=== PATIENT | male | born 1945 | race Caucasian/White ===

== ENCOUNTER 2019-11-20 07:11 | Outpatient (RCR) | payer MEDICARE, OTHER, SELFPAY | END 2019-12-13 23:59 | disposition home or self-care (01) | LOC: PULRHB 07:11 | PROVIDERS: Family Provider Internal Medicine; Visit Provider Internal Medicine Critical Care Medicine | DX: J44.9 Chronic obstructive pulmonary disease, unspecified (principal) ==

== ENCOUNTER 2019-12-10 09:41 | Outpatient (CLI) | payer MEDICARE, OTHER, SELFPAY | END 2019-12-10 09:42 | disposition home or self-care (01) | LOC: RT 09:41 | PROVIDERS: Family Provider Internal Medicine; Visit Provider Internal Medicine Critical Care Medicine | DX: J44.9 Chronic obstructive pulmonary disease, unspecified (principal) | CPT/HCPCS: 94060; 94726; 94729; J7611 ==

== ENCOUNTER 2019-12-18 13:30 | Outpatient (RCR) | payer MEDICARE, OTHER, SELFPAY | END 2020-01-11 23:59 | disposition home or self-care (01) | LOC: PULRHB 13:30 | PROVIDERS: Family Provider Internal Medicine; PCP Internal Medicine Critical Care Medicine; Visit Provider Internal Medicine Critical Care Medicine | DX: Z01.89 Encounter for other specified special examinations (principal) ==

== ENCOUNTER 2019-12-27 07:52 | Outpatient (RCR) | payer MEDICARE, OTHER, SELFPAY ==
--- NOTE | 2019-12-27 08:00 | USCV_ITS ---
Lui Kev Age: 74 Gender: M : 1945 Exam Date: 12/27/2019 08:11 Ordering Phys: Josie Jacobson MD Technologist: Boy Blake Exam Location: [facility] [place] Indication: BP: 126 / 73 HR: 66 Rhythm: Sinus Technical Quality: Suboptimal MEASUREMENTS (Male / Female) Normal Values 2D ECHO LV Diastolic Diameter PLAX 5.3 cm 4.2 - 5.9 / 3.9 - 5.3 cm LV Systolic Diameter PLAX 3.4 cm IVS Diastolic Thickness 1.0 cm 0.6 - 1.0 / 0.6 - 0.9 cm IVS Systolic Thickness 1.7 cm LVPW Diastolic Thickness 1.2 cm 0.6 - 1.0 / 0.6 - 0.9 cm LVPW Systolic Thickness 1.6 cm LVOT Diameter 2.1 cm LV Ejection Fraction 2D Teich 64.6 % LV Ejection Fraction MOD 2C 54.7 % LV Ejection Fraction 2C AL 53.8 % LA Diameter 4.2 cm LA Width 4.5 cm LA Height 5.7 cm RA Width 4.3 cm RA Height 5.0 cm Aorta at Sinotubular Diameter 2.9 cm M-MODE LV Diastolic Diameter MM 5.3 cm 4.2 - 5.9 / 3.9 - 5.3 cm LV Systolic Diameter MM 3.7 cm LV Ejection Fraction MM Teich 57.1 % IVS Diastolic Thickness MM 1.1 cm 0.6 - 1.0 / 0.6 - 0.9 cm IVS Systolic Thickness MM 1.5 cm LVPW Diastolic Thickness MM 1.4 cm 0.6 - 1.0 / 0.6 - 0.9 cm LVPW Systolic Thickness MM 1.8 cm RV Diastolic Diameter MM 2.1 cm Aortic Annulus Diameter 4.4 cm LA Ao Ratio MM 0.9 MV E Point Septal Separation 1.7 cm DOPPLER AV Peak Velocity 186.0 cm/s LVOT Peak Velocity 91.0 cm/s AV Area Cont Eq vti 1.5 cm squared AV Area Cont Eq pk 1.6 cm squared MV Area PHT 5.0 cm squared Mitral E to A Ratio 1.3 MV E' Velocity 8.0 cm/s Mitral E to MV E' Ratio 21.2 Mitral E to LV E' Lateral Ratio 17.1 Mitral E to LV E' Septal Ratio 27.8 TR Peak Velocity 230.0 cm/s TR Peak Gradient 21.1 mmHg TV Peak E Velocity 128.0 cm/s Right Atrial Pressure 3.0 mmHg Pulmonary Artery Systolic Pressu 24.2 mmHg PV Peak Velocity 126.0 cm/s FINDINGS Left Ventricle Normal left ventricular size, systolic function and wall thickness, with no regional wall motion abnormalities. Grade II/IV diastolic dysfunction, moderately elevated filling pressures. Left ventricular ejection fraction is estimated at 55 %. Right Ventricle Normal right ventricular size and systolic function. Normal right ventricular systolic pressure. Right Atrium Mildly increased right atrial size. Left Atrium Mildly increased left atrial size. Mitral Valve Mitral valve not well visualized. No mitral valve regurgitation. Aortic Valve Structurally normal trileaflet aortic valve. Mild aortic valve calcification. Mild aortic valve stenosis, mean gradient 5.3 mmHg, CHAGO 1.5 cm squared. No aortic valve regurgitation. Tricuspid Valve Tricuspid valve not well visualized. Structurally normal tricuspid valve. Trace tricuspid valve regurgitation. Pulmonic Valve Pulmonic valve not well visualized. Mild pulmonary valve regurgitation. Pericardium Normal pericardium without effusion. Aorta Normal ascending aorta dimension. CONCLUSIONS Normal left ventricular size, systolic function and wall thickness, with no regional wall motion abnormalities. Grade II/IV diastolic dysfunction, moderately elevated filling pressures. Left ventricular ejection fraction is estimated at 55 %. Mildly increased right atrial size. Mildly increased left atrial size. Structurally normal trileaflet aortic valve. Mild aortic valve calcification. Mild aortic valve stenosis, mean gradient 5.3 mmHg, CHAGO 1.5 cm squared. No aortic valve regurgitation. There are no prior echocardiogram studies to compare. Dr. Clinton Washington MD (Electronically Signed) Final Date: 27 December 2019 14:50 S
== END 2020-01-11 23:59 | disposition home or self-care (01) ==
LOC: RAD 07:52
PROVIDERS: Family Provider Internal Medicine; PCP Internal Medicine Critical Care Medicine; Visit Provider Internal Medicine Critical Care Medicine
DX: I35.0 Nonrheumatic aortic (valve) stenosis (principal); I51.7 Cardiomegaly; I51.89 Other ill-defined heart diseases; R06.02 Shortness of breath
CPT/HCPCS: 93306

== ENCOUNTER 2020-01-06 09:23 | Outpatient (CLI) | payer MEDICARE, OTHER, SELFPAY ==
--- NOTE | 2020-01-06 09:49 | XR_ITS ---
WS: [id number] CHEST 2 VIEWS HISTORY: shortness of breath and hypoxia COMPARISON: 05/29/2018 Lungs: Hyperexpanded lungs. Linear stranding and bands in the lower lung person, LEFT greater than RI GHT. Slight elevation of the LEFT hemidiaphragm. Similar to the prior study. There are small bilatera l pleural effusions. Rounded atelectasis also noted on a prior CT involving the LEFT lung base. No pn eumonia or interval change. Cardiac size: Normal. Mediastinum/Aorta: Mild atherosclerosis aorta. Prior CABG. Bones: Thoracic spondylosis. XR/XR chest 2V* [id number] IMPRESSION: 1. Small bilateral pleural effusions versus pleural thickening. 2. More prominent consolidation at the LEFT base was noted to be related due t o a loculated pleural effusion and atelectasis as seen on 11/04/2019 with no in terval change. 3. Emphysema. 4. Prior CABG.
== END 2020-01-06 09:24 | disposition home or self-care (01) ==
PROVIDERS: Family Provider Internal Medicine; PCP Internal Medicine Critical Care Medicine; Visit Provider Internal Medicine Critical Care Medicine
DX: J43.9 Emphysema, unspecified (principal); R06.00 Dyspnea, unspecified; J90 Pleural effusion, not elsewhere classified; J98.11 Atelectasis; Z95.1 Presence of aortocoronary bypass graft
CPT/HCPCS: 71046

== ENCOUNTER 2020-01-20 08:31 | Outpatient (CLI) | payer MEDICARE, OTHER, SELFPAY ==
--- NOTE | 2020-01-20 08:30 | CT_ITS ---
WS: [id number] CTA THORACIC TECHNIQUE: Contrast enhanced CTA of the thoracic aorta with coronal and sagittal reformatted images a nd maximum intensity projection (MIP) images. CLINICAL INFORMATION: Increased SOB COMPARISON: CT chest November 04, 2019 DLP: 752.[address] scans at [facility] use at least one of these dose optimization techniques: automat ed exposure control; mA and/or kV adjustment per patient size (includes targeted exams where dose is matched to clinical indication); or iterative reconstruction. FINDINGS: Proximal main pulmonary arteries are patent. Segmental and subsegmental pulmonary arteries are patent . No evidence for pulmonary embolus. Chronic emphysematous changes. Small loculated pleural effusion left lower lobe unchanged from previo us. Compressive atelectasis left lower lobe. Hazy atelectasis and scattered groundglass opacities in both lungs more prominent in the upper lobes. This is new from previous and may be infectious or infl ammatory. No focal pneumonia. Subsegmental atelectasis right lower lobe. Trace right pleural fluid. Right thyroid nodule measuring 12 mm. Vascular calcification. Coronary calcification. No mediastinal or hilar lymphadenopathy. Sternotomy. Adrenal glands are normal. Cholelithiasis. Anterior hypertrophi c changes thoracic spine. CT/CT angio chest [id number] IMPRESSION: 1. No evidence for pulmonary embolus. 2. Cholelithiasis. 3. Small esophageal hiatal hernia. 4. Loculated small left pleural effusion with compressive atelectasis left crystal g base unchanged. Trace right pleural fluid. 5. Hazy groundglass infiltrates and atelectasis within the right greater than left upper lobes new from previous. This may be infectious or inflammatory. No focal pneumonia. 6. Vascular calcification including coronary.
[2020-01-20 09:13] LABS: Blood Urea Nitrogen 12 mg/dL (8-23)
[2020-01-20] MEDS: iohexol 350 mg/mL 100 mL Btl IV (09:48)
== END 2020-01-20 08:32 | disposition home or self-care (01) ==
LOC: RADWPI 08:36
PROVIDERS: Radiology Neuroradiology; Family Provider Internal Medicine; PCP Internal Medicine Critical Care Medicine; Visit Provider Internal Medicine Critical Care Medicine
DX: J44.9 Chronic obstructive pulmonary disease, unspecified (principal); J90 Pleural effusion, not elsewhere classified; I28.8 Other diseases of pulmonary vessels; K80.20 Calculus of gallbladder without cholecystitis without obstruction; K44.9 Diaphragmatic hernia without obstruction or gangrene; J98.11 Atelectasis; I25.10 Atherosclerotic heart disease of native coronary artery without angina pectoris; R06.02 Shortness of breath
CPT/HCPCS: 71275; 82565; 84520; Q9967

== ENCOUNTER 2020-03-17 09:11 | Outpatient (CLI) | payer MEDICARE, OTHER, SELFPAY ==
[2020-03-17 09:44] LABS: Alanine Aminotransferase 17 U/L (0-41); Albumin Level 3.9 g/dL (3.5-5.2); Alkaline Phosphatase 138 IU/L (40-130); Anion Gap 12.5 (5-19); Aspartate Amino Transferase 16 U/L (0-40); Blood Urea Nitrogen 17 mg/dL (8-23); Calcium 9.7 mg/dL (8.5-10.5); Carbon Dioxide 32 mmol/L (22-29); Chloride 102 mmol/L (98-107); Globulin 2.9 g/dL (1.3-4.6); Glucose 106 mg/dL (65-115); Osmolality Calculated 291 mOsm/kg (285-295); Potassium 4.5 mmol/L (3.5-5.1); Sodium 142 mmol/L (136-145); Total Bilirubin 0.5 mg/dL (0.15-1.2); Total Protein 6.8 g/dL (6.6-8.7)
== END 2020-03-17 09:12 | disposition home or self-care (01) ==
LOC: LAB 09:14
PROVIDERS: Family Provider Internal Medicine; PCP Internal Medicine Critical Care Medicine; Visit Provider Internal Medicine Critical Care Medicine
DX: J44.9 Chronic obstructive pulmonary disease, unspecified (principal)
CPT/HCPCS: 80053

== ENCOUNTER 2020-04-13 06:00 | Outpatient (RCR) | payer MEDICARE, OTHER, SELFPAY | END 2020-05-12 23:59 | disposition home or self-care (01) | LOC: PULRHB 06:00 | PROVIDERS: PCP Internal Medicine Critical Care Medicine; Visit Provider Internal Medicine Critical Care Medicine | DX: J44.9 Chronic obstructive pulmonary disease, unspecified (principal) | CPT/HCPCS: G0237; G0238; G0239 ==

== ENCOUNTER 2020-05-13 06:00 | Outpatient (RCR) | payer MEDICARE, OTHER, SELFPAY | END 2020-06-12 23:59 | disposition home or self-care (01) | LOC: PULRHB 06:00 | PROVIDERS: PCP Internal Medicine Critical Care Medicine; Visit Provider Internal Medicine Critical Care Medicine | DX: J84.10 Pulmonary fibrosis, unspecified (principal) | CPT/HCPCS: 94010; G0237; G0238 ==

== ENCOUNTER 2020-12-05 09:50 | Emergency (ER) | payer MEDICARE, OTHER, SELFPAY ==
[2020-12-05 09:52] VITALS: BP 165/94; PULSE 62; RESP 18; TEMP 36.7; O2SAT 100; BMI 27.1
--- NOTE | 2020-12-05 09:57 | ED_ITS ---
HPI - Male Genitourinary General: Chief complaint: Urogenital-Male Stated complaint: BLOODY URINE Time Seen by Provider: 12/05/20 09:52 History of Present Illness: HPI Narrative: 75-year-old male presents emergency room complaining of hematuria. Symptoms began last night. He has been able to urinate they have after he urinates he says he will get some continued bloody discharge. Some mild discomfort with urination. She does not feel like he is having difficulty emptying his bladder. He denies any history of prostate cancer bladder cancer. He is on Plavix. He has had a history of nephrolithiasis in the past denies any flank pain is not in any apparent pain at this time. He has severe COPD and is on his usual amount of oxygen. MD Complaint: other (Gross hematuria) Onset (ago): hour(s) Duration: constant Exacerbating factors: none Associated symptoms: Reports hematuria; Deny discharge, dysuria, fevers/chills, nausea, rash, swelling, urinary incontinence, urinary retention, mass or vomiting Review of Systems Const: Denies: fever(s), chills, body aches, change in appetite, fatigue or malaise ENMT: Denies: throat pain, ear or mastoid pain, nasal discharge or nasal congestion Card: Denies: chest pain, edema, dyspnea on exertion or orthopnea Resp: Denies: dyspnea, productive cough or non-productive cough GI: Denies: vomiting : Reports: hematuria; Denies: dysuria or urinary incontinence Skin/Breast: Denies: rash or pruritus [facility] PFSH: Medical History CAD (coronary artery disease) COPD (chronic obstructive pulmonary disease) Essential (primary) hypertension Hyperlipidemia Pleural thickening Ventricular bigeminy Surgical History H/O heart surgery History of back surgery Family History Mother Diabetes Social History Smoking and tobacco status: former smoker Quit status (tobacco): has quit using tobacco Year quit tobacco: 1981 - 2PPD x 20 Years Smoking risk assessment/counseling performed?: No Alcohol intake: never Desire information about alcohol rehabilitation?: No Counseling given: No Desire information about substance/drug rehabilitation?: No Counseling given: No Lives independently: Yes Household members: spouse Marital status: Current occupational status: retired History of recent travel: No Current gender identity: Male Physical Exam Const: COMMON NORMALS: no acute distress GENERAL APPEARANCE: cooperative and comfortable ORIENTATION/CONSCIOUSNESS: Yes awake, Yes oriented to person, Yes oriented to place and Yes oriented to time HENMT: COMMON NORMALS: normocephalic, atraumatic and hearing grossly normal bilaterally HEAD & SCALP: normocephalic and atraumatic Neck/C-Spine: COMMON NORMALS: no JVD Resp: COMMON NORMALS: normal respiratory effort, No retractions and No use of accessory muscles AUSCULTATION: diminished lung sounds Cardio: COMMON NORMALS: no JVD, regular rate, regular rhythm and No murmurs present (Cardio) RATE: regular rate RHYTHM: regular rhythm GI: COMMON NORMALS: Soft to palpation and No hepatosplenomegaly present AUSCULTATION: Yes normoactive bowel sounds PALPATION: Yes Soft to palpation, No Tenderness to palpation present (GI), No Guarding due to palpation present (GI) and Yes No hepatosplenomegaly present Extremity: COMMON NORMALS: normal to inspection, capillary refill normal, no clubbing, cyanosis or edema, no calf tenderness and no pedal edema Neuro: SENSORIUM/ORIENTATION: Yes oriented to person, Yes oriented to place and Yes oriented to time Skin: COMMON NORMALS: no rashes or lesions noted GENERAL SKIN EXAM: no rashes or lesions noted Course Vital Signs: Vital signs: Vital Signs Temperature 98.1 F 12/05/20 09:52 Pulse Rate 73 12/05/20 12:52 Respiratory Rate 15 12/05/20 12:52 Blood Pressure 152/72 12/05/20 12:52 Pulse Oximetry 100 12/05/20 12:52 MDM - Male MDM Narrative: Medical decision making narrative: Gross hematuria on the CT there is evidence of a stone in the bladder I suspect he already passed a stone is having increased hematuria because of his Plavix patient vies to watch closely to make sure he empties his bladder feels like he cannot empty his bladder needs to return drink regular amounts of fluid to encourage urination collect stone follow-up with Keiry if has any problems return Lab Data: Labs: Lab Results 12/05/20 12/05/20 12/05/20 Range/Units 10:05 10:05 10:05 WBC 9.0 (4.0-10.0) 10^3/ uL RBC 4.40 (4.1-5.3) 10^6/u L Hgb 12.8 (11.7-16.6) g/dL Hct 42.0 (42.0-52.0) % MCV 95.5 H (80-94) fL MCH 29.1 (28.0-34.0) pg MCHC 30.5 (30.0-36.0) g/dL RDW 13.3 (12.1-15.1) % Plt Count 233 (130-400) 10^3/c mm MPV 11.1 H (7.4-10.4) fL Neut % (Auto) 74.9 % Lymph % (Auto) 16.4 % Thurston % (Auto) 7.1 % Eos % (Auto) 1.0 % Baso % (Auto) 0.2 % Neut # (Auto) 6.76 (1.8-7.7) 10^3/u L Lymph # (Auto) 1.5 (0.8-4.8) 10^3/u L Thurston # (Auto) 0.6 (0.2-0.9) 10^3/u L Eos # (Auto) 0.1 (0.0-0.8) 10^3/u L Baso # (Auto) 0.0 (0.0-0.1) 10^3/u L Nucleated RBC % (a uto) 0 % Nucleated RBCs # 0.0 /100WBC PT 13.00 (12.1-14.9) SECO NDS INR 0.96 (0.8-1.2) APTT 30.9 (23.9-36.7) SECO NDS Sodium 142 (136-145) mmol/L Potassium 3.9 (3.5-5.1) mmol/L Chloride 102 (98-107) mmol/L Carbon Dioxide 34 H (22-29) mmol/L Anion Gap 9.9 (5-19) BUN 18 (8-23) mg/dL Creatinine 0.8 (0.7-1.2) mg/dL GFR Calculation Not Reportable Glucose 91 (65-115) mg/dL Calculated Osmolal ity 295 (285-295) mOsm/k g Calcium 10.3 (8.5-10.5) mg/dL Total Bilirubin 0.8 (0.15-1.2) mg/dL AST 17 (0-40) U/L ALT 14 (0-41) U/L Alkaline Phosphata se 162 H (40-130) IU/L Total Protein 6.7 (6.6-8.7) g/dL Albumin 3.8 (3.5-5.2) g/dL Globulin 2.9 (1.3-4.6) g/dL Urine Color (Yellow) Urine Appearance (CLEAR) Urine pH (5-7) Ur Specific Gravit y (1.005-1.030) Urine Protein (Negative) Urine Glucose (UA) (Normal) Urine Ketones (Negative) Urine Blood (Negative) Urine Nitrate (Negative) Urine Bilirubin (Negative) Urine Urobilinogen (Negative) mg/dL Ur Leukocyte Jana ase (Negative) Urine RBC (0-2) /hpf Urine WBC (0-5) /hpf Ur Squamous Epith Cells (0-5) /hpf Amorphous Sediment Urine Bacteria (NONE) /hpf 12/05/20 Range/Units 10:24 WBC (4.0-10.0) 10^3/ uL RBC (4.1-5.3) 10^6/u L Hgb (11.7-16.6) g/dL Hct (42.0-52.0) % MCV (80-94) fL MCH (28.0-34.0) pg MCHC (30.0-36.0) g/dL RDW (12.1-15.1) % Plt Count (130-400) 10^3/c mm MPV (7.4-10.4) fL Neut % (Auto) % Lymph % (Auto) % Thurston % (Auto) % Eos % (Auto) % Baso % (Auto) % Neut # (Auto) (1.8-7.7) 10^3/u L Lymph # (Auto) (0.8-4.8) 10^3/u L Thurston # (Auto) (0.2-0.9) 10^3/u L Eos # (Auto) (0.0-0.8) 10^3/u L Baso # (Auto) (0.0-0.1) 10^3/u L Nucleated RBC % (a uto) % Nucleated RBCs # /100WBC PT (12.1-14.9) SECO NDS INR (0.8-1.2) APTT (23.9-36.7) SECO NDS Sodium (136-145) mmol/L Potassium (3.5-5.1) mmol/L Chloride (98-107) mmol/L Carbon Dioxide (22-29) mmol/L Anion Gap (5-19) BUN (8-23) mg/dL Creatinine (0.7-1.2) mg/dL GFR Calculation Glucose (65-115) mg/dL Calculated Osmolal ity (285-295) mOsm/k g Calcium (8.5-10.5) mg/dL Total Bilirubin (0.15-1.2) mg/dL AST (0-40) U/L ALT (0-41) U/L Alkaline Phosphata se (40-130) IU/L Total Protein (6.6-8.7) g/dL Albumin (3.5-5.2) g/dL Globulin (1.3-4.6) g/dL Urine Color Red (Yellow) Urine Appearance Bloody A (CLEAR) Urine pH 7 (5-7) Ur Specific Gravit y 1.020 (1.005-1.030) Urine Protein 1+ H (Negative) Urine Glucose (UA) Norm (Normal) Urine Ketones Negative (Negative) Urine Blood 3+ H (Negative) Urine Nitrate Negative (Negative) Urine Bilirubin Neg (Negative) Urine Urobilinogen Norm (Negative) mg/dL Ur Leukocyte Jana ase Trace H (Negative) Urine RBC Too numerous to c nt H (0-2) /hpf Urine WBC 0-4 H (0-5) /hpf Ur Squamous Epith Cells None (0-5) /hpf Amorphous Sediment Not Reportable Urine Bacteria 2+ H (NONE) /hpf Discharge Plan Discharge Patient Disposition: Home Clinical Impression: Ureterolithiasis, COPD (chronic obstructive pulmonary disease) Condition: Stable Prescriptions: No Action metoprolol succinate 50 mg tablet extended release 24 hr 50 mg PO DAILY RF: 0 clopidogrel 75 mg tablet 75 mg PO DAILY RF: 0 albuterol sulfate [Ventolin HFA] 90 mcg/actuation HFA aerosol inhaler 2 puff INHALATION Q6H PRNRF: 0 furosemide 40 mg tablet 40 mg PO DAILY RF: 0 nifedipine 30 mg tablet extended release 30 mg PO BID RF: 0 atorvastatin 20 mg tablet 20 mg PO DAILY RF: 0 aspirin [Adult Aspirin Regimen] 81 mg tablet,delayed release (DR/EC) 81 mg PO DAILY RF: 0 cholecalciferol (vitamin D3) PO RF: 0 albuterol sulfate 2.5 mg /3 mL (0.083 %) solution for nebulization 2.5 mg INHALATION Q4H PRNRF: 0 olmesartan 40 mg tablet 40 mg PO DAILY RF: 0 formoterol fumarate [Perforomist] 20 mcg/2 mL solution for nebulization See Rx Instructions .ROUTE .COMPLEX Qty: 60 RF: 11 revefenacin [Yupelri] 175 mcg/3 mL solution for nebulization See Rx Instructions .ROUTE .COMPLEX Qty: 30 RF: 11 budesonide 0.5 mg/2 mL suspension for nebulization See Rx Instructions .ROUTE .COMPLEX Qty: 60 RF: 11 nitroglycerin 0.4 mg tablet, sublingual 0.4 mg sublingual Q5M PRN (Reason: chest pain) Qty: 30 RF: 0 Discharge Orders: Discharge ED (Routine); Ordered 12/05/20 Ordered By: Hermelindo Mejia Referrals: Kalin Jordan DO [Primary Care Provider] - Discharge Diet: Usual diet Discharge Activity: Resume usual activity Activity Restrictions/Additional Instructions: Strain urine to collect renal stone. Follow-up with Dr. Ricci, case management will call with date and time Coding Level of Care Code ED [employer] Operator for Pamella Bojorquez
--- NOTE | 2020-12-05 10:04 | CTR_ITS ---
PROCEDURE INFORMATION: Exam: CT Abdomen And Pelvis With Contrast Exam date and time: 12/05/2020 11:11 AM Age: 75 years old Clinical indication: Other: Blood in urine; Additional info: Abd pain TECHNIQUE: Imaging protocol: Computed tomography of the abdomen and pelvis with intravenous contrast. Radiation optimization: All CT scans at this facility use at least one of these dose optimization techniques: automated exposure control; mA and/or kV adjustment per patient size (includes targeted exams where dose is matched to clinical indication); or iterative reconstruction. Contrast material: OMNI 300; Contrast volume: 95 ml; Contrast route: INTRAVENOUS (IV); COMPARISON: No relevant prior studies available. RADIATION DOSE METRICS: Total DLP (mGy-cm): 651.07 FINDINGS: Lungs: There is bibasilar atelectasis with consolidation in the left lower lobe. There is a left pleural effusion which appears loculated with peripheral rim-like enhancement. This could represent chronic loculation though empyema cannot be excluded. Liver: There is a small benign calcification in the liver. The liver is otherwise unremarkable. Gallbladder and bile ducts: Cholelithiasis. Normal bile ducts. Pancreas: Normal. No ductal dilation. Spleen: Normal. No splenomegaly. Adrenal glands: Normal. No mass. Kidneys and ureters: There are multiple bilateral benign-appearing renal cysts with the largest in the lower pole of the left kidney measuring 2.2 cm in diameter. There are no suspicious renal masses. There is minimal haziness of the fat around the left renal pelvis. This is nonspecific but could be related to recent ureteral stone. There is is no significant hydronephrosis. Small renal vascular calcifications are present. Stomach and bowel: Unremarkable. No obstruction. No mucosal thickening. Appendix: The appendix is normal. Intraperitoneal space: Unremarkable. No free air. No significant fluid collection. Vasculature: The aorta and iliac arteries are calcified. There is no aneurysm. Lymph nodes: Unremarkable. No enlarged lymph nodes. Urinary bladder: There is a 2 mm calcification that appears to be within the urinary bladder along the posterior wall. This could represent a recently passed ureteral stone. Reproductive: The prostate is enlarged and contains multiple benign calcifications. Bones/joints: Degenerative changes are present in the spine with joint space narrowing sclerosis and osteophytes. Soft tissues: Unremarkable. CT/CT abdomen pelvis w con* [id number] IMPRESSION: 1. There is a 2 mm calcification that appears to be within the urinary bladder along the posterior wall. This may represent a recently passed ureteral stone. 2. Minimal haziness of the fat around the left renal pelvis. This may correlate with recently passed stone. 3. Bibasilar atelectasis with left lower lobe consolidation. Small loculated left pleural effusion. 4. Degenerative changes in the spine. 5. Atherosclerotic aorta. 6. Cholelithiasis. COMMENTS: Consistent with the [place] [employer]'s Incidental Findings Committee white paper (J Am Soraida Radiol 2018): Any incidental renal lesion less than 1 cm or classified as too small to characterize, or any incidental cystic renal lesion characterized as simple-appearing, is likely benign. No follow-up imaging is recommended for these lesions per consensus recommendations based on imaging criteria. Radiation Dose CTDIVOL = (mGy): DLP = 651.07 (mGy-cm)
[2020-12-05 10:15] VITALS: BP 148/71; PULSE 88; RESP 18; O2SAT 100
[2020-12-05 10:16] VITALS: O2SAT 100
[2020-12-05 10:25] LABS: Basophils % 0.2 %; Eosinophils # 0.1 10^3/uL (0.0-0.8); Hemoglobin 12.8 g/dL (11.7-16.6); Lymphocytes # 1.5 10^3/uL (0.8-4.8); Lymphocytes % 16.4 %; Mean Corpuscular HGB Conc 30.5 g/dL (30.0-36.0); Mean Corpuscular Hemoglobin 29.1 pg (28.0-34.0); Mean Corpuscular Volume 95.5 fL (80-94); Mean Platelet Volume 11.1 fL (7.4-10.4); Monocytes # 0.6 10^3/uL (0.2-0.9); Monocytes % 7.1 %; Neutrophils # 6.76 10^3/uL (1.8-7.7); Neutrophils % 74.9 %; Nucleated Red Blood Cells % 0 %; Platelet Count 233 10^3/cmm (130-400); Red Cell Distribution Width 13.3 % (12.1-15.1)
[2020-12-05 10:31] LABS: INR 0.96 (0.8-1.2); Partial Thromboplastin Time 30.9 SECONDS (23.9-36.7)
[2020-12-05 10:52] LABS: Alanine Aminotransferase 14 U/L (0-41); Albumin Level 3.8 g/dL (3.5-5.2); Alkaline Phosphatase 162 IU/L (40-130); Anion Gap 9.9 (5-19); Aspartate Amino Transferase 17 U/L (0-40); Blood Urea Nitrogen 18 mg/dL (8-23); Calcium 10.3 mg/dL (8.5-10.5); Carbon Dioxide 34 mmol/L (22-29); Chloride 102 mmol/L (98-107); Globulin 2.9 g/dL (1.3-4.6); Glucose 91 mg/dL (65-115); Osmolality Calculated 295 mOsm/kg (285-295); Potassium 3.9 mmol/L (3.5-5.1); Sodium 142 mmol/L (136-145); Total Bilirubin 0.8 mg/dL (0.15-1.2); Total Protein 6.7 g/dL (6.6-8.7)
[2020-12-05 10:52] LABS: Add Urine Microscopic? YES; Bilirubin Urine Neg (Negative); Blood Urine 3+ (Negative); Glucose Urine UA Norm (Normal); Ketones Urine Negative (Negative); Leukocyte Esterase Urine Trace (Negative); Nitrate Urine Negative (Negative); Protein Urine 1+ (Negative); Urine Appearance Bloody (CLEAR); Urine Color Red (Yellow); Urobilinogen Urine Norm (Negative); pH Urine 7 (5-7)
[2020-12-05 10:53] LABS: Add Urine Culture? Yes; Bacteria Urine 2+ /hpf; RBC Urine TOO NUMEROUS TO CNT /hpf (0-2); WBC Urine 0-4 /hpf (0-5)
[2020-12-05 11:15] VITALS: BP 161/80; PULSE 75; RESP 16; O2SAT 96
[2020-12-05] MEDS: iohexol 300 mg/mL 100 mL Btl IV (11:24)
[2020-12-05 12:00] VITALS: BP 152/72; PULSE 73; RESP 15; O2SAT 100
[2020-12-05 12:52] VITALS: BP 152/72; PULSE 73; RESP 15; O2SAT 100
--- NOTE | 2020-12-07 16:20 | DCPLANNER ---
assistant operations manager had message to schedule a follow up appointment for patient with Dr. Ricci. assistant operations manager called the office of Dr. Ricci, spoke with Aminta, gave clinic patients information. assistant operations manager was told that patients information would be printed and reviewed. Clinic will call patient with appointment information.
--- NOTE | 2020-12-11 08:03 | DCPLANNER ---
Patient has a follow up appointment scheduled for Friday, December 18, 2020 at 10:[address] Ricci. Clinic will call patient with appointment information.
--- NOTE | 2021-01-14 08:09 | DCPLANNER ---
Patient had a follow up appointment scheduled for 12.18.[address] Ricci - patient did attend appointment.
== END 2020-12-05 12:53 | disposition home or self-care (01) ==
PROVIDERS: Emergency Provider Family Medicine; PCP Internal Medicine
DX: N20.1 Calculus of ureter (principal); J44.9 Chronic obstructive pulmonary disease, unspecified; Z79.02 Long term (current) use of antithrombotics/antiplatelets; Z79.82 Long term (current) use of aspirin; I25.10 Atherosclerotic heart disease of native coronary artery without angina pectoris; I10 Essential (primary) hypertension; E78.5 Hyperlipidemia, unspecified; Z87.891 Personal history of nicotine dependence
CPT/HCPCS: 12345; 51798; 74177; 80053; 81001; 85025; 85610; 85730; 87086; 99283; Q9967

== ENCOUNTER 2020-12-18 09:08 | Outpatient (CLI) | payer MEDICARE, OTHER, SELFPAY ==
--- NOTE | 2020-12-18 09:00 | XR_ITS ---
WS: [id number] KUB, AP view, 12/18/2020 Clinical Data: URETEROLITHIASIS Comparison: None. Findings: No abnormal intraabdominal masses or calcifications are seen. There is no dilatated small bowel or ev idence of obstruction. Fecal material obscures detail over both kidneys. Vascular calcifications are present in the common iliac arteries and distal branches. There are prost ate calcifications. XR/XR KUB [id number] Impression: Negative KUB.
== END 2020-12-18 09:09 | disposition home or self-care (01) ==
LOC: RAD 09:13
PROVIDERS: PCP Internal Medicine; Visit Provider Urology
DX: N20.1 Calculus of ureter (principal)
CPT/HCPCS: 74018; 81003; 87086

== ENCOUNTER → 2020-12-21 10:13 | Outpatient (BNVA) | payer MEDICARE, OTHER, SELFPAY | PROVIDERS: PCP Internal Medicine; Visit Provider Urology | DX: Z20.822 Contact with and (suspected) exposure to COVID-19 (principal); N42.0 Calculus of prostate | CPT/HCPCS: 87635 ==

== ENCOUNTER 2020-12-23 10:46 | Day surgery (SDC) | payer MEDICARE, OTHER, SELFPAY ==
[2020-12-22 12:29] VITALS: BMI 26.6
--- NOTE | 2020-12-23 11:49 | ANES.PREANE2 ---
Pre-Anesthetic Assessment Pre-Anesthetic Assessment: Height/Weight: Height 1.75 m Weight 81.647 kg Preop Diagnosis: Urethral calculus Proposed Procedure: Operation Date: 12/23/20 12:20 Proposed Procedures p Cystolitholapaxy 35316 N42.0(Not Applicable) - Stanley Ricci MD Was Beta Jeyson taken within 24 hours: N/A Last intake: Intake Last Liquid Date 12/22/20 Last Liquid Time 21:00 Last Solid Date 12/22/20 Last Solid Time 18:00 Social: Social History: No alcohol and No tobacco Exam: Pre-Anes Outpt Exam: alert, oriented x 3 and regular rate & rhythm Additional Exam Findings (including area of procedure): BS reduced Airway: Submandibular: WNL Cervical ROM: WNL MP: 2 Additional comments: OK Pulmonary: Pulmonary: COPD Comments: 8-10L by face mask CV/HEM: CV/HEM: CAD, HTN and PVD Comments: Multiple stents Anesthetic Plan: ASA status: 4 Anesthesia: MAC Risk of > 500 ml blood loss (7ml/kg in children): No PFSH Anesthesia PFSH: Medical History BPH loc w urin obs/LUTS CAD (coronary artery disease) COPD (chronic obstructive pulmonary disease) Essential (primary) hypertension Hyperlipidemia Pleural thickening Urethral stricture Urolithiasis Ventricular bigeminy Surgical History H/O four vessel coronary artery bypass graft H/O heart surgery History of back surgery Family History Mother Diabetes Social History Smoking and tobacco status: former smoker Quit status (tobacco): has quit using tobacco Year quit tobacco: 1981 - 2PPD x 20 Years Smoking risk assessment/counseling performed?: No Alcohol intake: never Desire information about alcohol rehabilitation?: No Counseling given: No Desire information about substance/drug rehabilitation?: No Counseling given: No Lives independently: Yes Household members: spouse Marital status: Current occupational status: retired History of recent travel: No Current gender identity: Male Data Anesthesia Cardiac Studies: No Data to Display
[2020-12-23 11:53] VITALS: BP 151/71; PULSE 67; RESP 18; TEMP 36.6; O2SAT 99
[2020-12-23] MEDS: sodium chloride 0.9% 1,000 ML 30 ML IV (11:59)
--- NOTE | 2020-12-23 13:02 | P.HPUD_ITS ---
Surgery/Procedure H&P Update DATE OF PROCEDURE: December 23, 2020 DATE H&P PERFORMED: 12/21/20 H&P UPDATE INFORMATION: I have reviewed H&P completed within last 30 days, I have examined patient prior to procedure, No changes to prior documentation and H&[place] is in [facility] [place] indicated PREOP DIAGNOSIS: Urethral calculus PLANNED PROCEDURE: Operation Date: 12/23/20 12:20 Proposed Procedures p Cystolitholapaxy 11722 N42.0(Not Applicable) - Stanley Ricci MD
[2020-12-23] MEDS: levofloxacin-dextrose 5 % 500 MG/100 ML PREMIX 100 MG IV (13:04)
[2020-12-23] MEDS: lidocaine 2% Urojet 20 mL TOPICAL (13:33)
--- NOTE | 2020-12-23 13:42 | PM.OP ---
Operative Report Date of procedure: December 23, 2020 Pre-op Diagnosis: Urethral/bladder calculus Post-op diagnosis: same Procedure Done: 1. Cystolitholapaxy >2.5 cm 2. Urethral dilation Specimens removed/disposition: Bladder, urethral, prostatic fragments Pathology: other (Stone fragments) Surgeon: Keiry Anesthesia: MAC Estimated blood loss: Less than 10 cc Urine output: Not measured Complications: None Findings: The fossa navicularis required dilation with [place] sounds to allow combination of the rigid cystoscope. The previously identified stones in the bulbar urethra were completely fragmented with a 365 ?m holmium laser fiber and withdrawn with a parachute basket. There was a large dilated duct at the apex of the prostate from which a prostatic calcification that was loose and it was treated with laser lithotripsy as well and withdrawn in fragments. The scope was passed into the bladder and additional stone was encountered in the bladder. Total diameter of the stones treated was estimated at 3-1/2 cm. Condition: stable Disposition: same day Brief History: Mr. Poe is a very pleasant 75-year-old white male who I saw in clinic for the first time recently with complaints of hematuria and the sensation of something obstructing his urethra. A cystoscopy revealed a fossa navicularis stricture and a stone in the bulbar urethra accompanied by multiple smaller stones. Attempts were made at withdrawing the stone via dilation of the fossa navicularis but it was unsuccessful due to the size of the stone. A period of passive dilation with a Shaikh catheter was conducted but this did not allow adequate dilation of the fossa navicularis to pull the stone out intact. The goal was to try to treat this in the clinic without having to put him to sleep because of his poor lung function but due to that failure it was decided to bring him in today for evaluation and treatment under MAC anesthesia. Procedure: After routine preoperative evaluation examination and obtaining of informed consent he was taken to the operating suite on 12/23/2020 where general anesthesia was administered without difficulty after appropriate timeout was performed, SCDs confirmed to be functioning, preoperative antibiotics administered, beta-george protocol confirmed. Prepped and draped in usual sterile fashion in dorsolithotomy position paying careful attention to avoiding pressure points. The urethral meatus and fossa navicularis was then dilated with Kelsey sounds up to 28 Lithuanian. A 21 Lithuanian cystoscope with 30 degree lens was introduced into the urethral meatus and passed into the bulbar urethra where the previously identified stones were encountered. A 365 ?m thulium superpulse laser fiber was utilized to fragment the stones into small pieces that were then withdrawn with a parachute basket without difficulty. The scope was then passed more proximally and a very dilated duct was identified on the right apex of the prostate with a large stone protruding from it. At first it was felt that the stone was probably wedged into this duct but it was actually very loose. It was treated with laser fiber as well and those fragments were removed with a parachute basket. The scope was then passed into the bladder and an additional stone was encountered and it was also fragmented. Those fragments were cleared from the bladder with an Ellik evacuator. Total diameter of stone treated was approximately 3-1/2 cm. On withdrawal the scope the dilated duct was again identified and evaluated an additional stone more proximal in the duct was identified but it was actually wedged tightly into the prostatic duct. (CT scan showed essentially 100s of stones in the prostate tissue). It was decided to not treat the stone because of its secured position. Final inspection revealed no active bleeding, no further fragments, and the bladder clear of stones. The bladder was drained and the procedure was completed. He tolerated procedure well without complications and was awakened in the operating room and returned to outpatient surgery in stable condition. PLANS: 1. I do not think that he needs a routine follow-up scheduled appointment but I will be available if he has further problems moving forward.
[2020-12-23 13:46] VITALS: BP 135/70; PULSE 60; RESP 18; TEMP 36.7; O2SAT 94
--- NOTE | 2020-12-23 13:57 | ANE.PACU2 ---
Inpatient post-anesthesia follow up: Airway intact: Yes Vital signs: Temperature 98.1 F Pulse Rate 60 Respiratory Rate 18 Blood Pressure 135/70 Pulse Oximetry 94 Oxygen Delivery Me thod Simple Mask Oxygen Flow Rate 8 Fraction of Inspir ed Oxygen Hydration adequate: Yes Nausea and vomiting: No Pain level: 1 Mental status: Baseline
[2020-12-23 14:02] VITALS: BP 139/74; PULSE 59; RESP 18; O2SAT 92
== END 2020-12-23 14:35 | disposition home or self-care (01) ==
PROVIDERS: PCP Internal Medicine; Visit Provider Urology
PROC: 0TCB8ZZ Extirpation of Matter from Bladder, Via Natural or Artificial Opening Endoscopic (ICD-10-PCS; CPT 52318; principal; 2020-12-23 12:00)
PROC: (CPT 52318; 2020-12-23 12:00)
DX: N20.1 Calculus of ureter (principal); N21.0 Calculus in bladder; J44.9 Chronic obstructive pulmonary disease, unspecified; I25.10 Atherosclerotic heart disease of native coronary artery without angina pectoris; I10 Essential (primary) hypertension; N40.1 Benign prostatic hyperplasia with lower urinary tract symptoms; N13.8 Other obstructive and reflux uropathy; E78.5 Hyperlipidemia, unspecified; Z87.891 Personal history of nicotine dependence; Z79.82 Long term (current) use of aspirin
CPT/HCPCS: 52318; 12345; 82365; 88300; J1956; J2704; J3010; J7030

== ENCOUNTER 2021-05-05 08:13 | Inpatient (IN) | payer MEDICARE, OTHER, SELFPAY ==
[2021-05-05] VITALS (32 sets, daily range): BP systolic 67–143; BP diastolic 49–95; PULSE 68–108; RESP 17–36; TEMP 36.5–36.7; O2SAT 79–99; BMI 26.2
--- NOTE | 2021-05-05 08:15 | ECG_ITS ---
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 Measurements Intervals [place] Rate: 76 P: OK: QRS: -45 QRSD: 129 T: 119 QT: 405 QTc: 458 Interpretive Statements ATRIAL FIBRILLATION WITH ABERRANT CONDUCTION OR VENTRICULAR PREMATURE COMPLEXES POSSIBLE RIGHT VENTRICULAR CONDUCTION DELAY [RSR (QR) IN V1/V2] LEFT ANTERIOR FASCICULAR BLOCK [QRS AXIS <= -45, QR IN I, RS IN II] POSSIBLE LEFT VENTRICULAR HYPERTROPHY [VOLTAGE CRITERIA PLUS LAE OR QRS WIDENING]POSSIBLE SEPTAL MYOCARDIAL INFARCTION [30 ms Q WAVE IN V1/V2], OF INDETERMINATEAGE MODERATE T-WAVE ABNORMALITY, CONSIDER LATERAL ISCHEMIA [-0.1+ mV T WAVE IN I/aVL/V5/V6] Compared to ECG 05/29/2018 19:48:26 Aberrant conduction of supraventricular beat(s) now present Left anterior fascicular block now present T-wave abnormality now present.Possible ischemia now present Sinus rhythm no longer present.Intraventricular conduction delay no longer present Myocardial infarct finding still present Electronically Signed On 05-05-2021 20:05:14 CDT by Luba Wilkins M.D. [email or web address]
--- NOTE | 2021-05-05 08:15 | XR_ITS ---
WS: [id number] Portable AP semiupright chest, 05/05/2021 Clinical Data: dyspnea/cough Comparison: PA and lateral chest, 11/16/2020. Findings: There are interstitial markings in both lungs more on the left than the right unchanged. Th ere is pleural reaction at both costophrenic angles. Heart is normal. The aortic arch and descending aorta show calcification and tortuosity. Midline sternotomy sutures are seen. There are monitor leads on the chest wall. There is a small osteochondroma of the mid lateral border of the right scapula ov erlying chest at the level of the right fourth rib. XR/XR chest 1V portable [id number] Impression: 1. Chronic interstitial changes of both lungs. 2. Bilateral pleural reaction. 3. Atherosclerosis.
--- NOTE | 2021-05-05 08:28 | W.ED.SOB ---
HPI - SOB/Dyspnea General: Chief Complaint: Shortness of Breath/Dyspnea Stated Complaint: SOB Time Seen by Provider: 05/05/21 08:15 History of Present Illness: HPI Narrative: 75-year-old male presents emergency room complaining of increasing shortness of breath over the last 3 weeks. He has a known history of severe COPD and is normally on oxygen at 7 to 8 L/min. Pulmonary rehab reports that he was 79% on 25 L via mask. Patient does report productive cough and increasing shortness of breath. Denies chest pain no vomiting or diarrhea. MD elicited complaint: shortness of breath and cough Pertinent past history: COPD Onset (ago): week(s) (3) Context: occurred during exertion Severity: severe Exacerbating factors: exertion and coughing Relieving factors: oxygen and rest Known history of: COPD Associated symptoms: Reports cough; Deny abdominal pain, chest congestion, chest pain, diaphoresis, dizziness, extremity pain, fever(s), hemoptysis, lightheadedness, myalgias, nausea, orthopnea, palpitations, paresthesias, polydipsia, polyuria, rash, sense of impending doom, syncope or vomiting Treatment prior to arrival: oxygen Review of Systems Const: Denies: fever(s) or diaphoresis ENMT: Denies: throat pain, ear or mastoid pain, nasal discharge or nasal congestion Card: Denies: chest pain, palpitations, lightheadedness, syncope or orthopnea Resp: Denies: hemoptysis or chest congestion GI: Denies: abdominal pain, nausea or vomiting : Denies: flank pain, dysuria, urinary frequency or urinary urgency Musc: Denies: extremity pain Skin/Breast: Denies: rash or pruritus Neuro: Denies: dizziness Endo: Denies: polyuria or polydipsia PFS ED PFSH: Medical History (Updated 05/08/21 @ 07:15 by Hermelindo Mejia DO) BPH loc w urin obs/LUTS CAD (coronary artery disease) COPD (chronic obstructive pulmonary disease) Essential (primary) hypertension Hyperlipidemia Pleural thickening Urethral stricture Urolithiasis Ventricular bigeminy Surgical History H/O four vessel coronary artery bypass graft H/O heart surgery History of back surgery Family History Mother Diabetes Social History Smoking and tobacco status: former smoker Quit status (tobacco): has quit using tobacco Year quit tobacco: 1981 - 2PPD x 20 Years Smoking risk assessment/counseling performed?: No Alcohol intake: never Desire information about alcohol rehabilitation?: No Counseling given: No Desire information about substance/drug rehabilitation?: No Counseling given: No Lives independently: Yes Household members: spouse Marital status: Current occupational status: retired History of recent travel: No Current gender identity: Male Physical Exam Const: COMMON NORMALS: no acute distress GENERAL APPEARANCE: cooperative and comfortable ORIENTATION/CONSCIOUSNESS: Yes awake, Yes oriented to person, Yes oriented to place and Yes oriented to time HENMT: COMMON NORMALS: normocephalic, atraumatic, hearing grossly normal bilaterally and external ears normal HEAD & SCALP: normocephalic and atraumatic EXTERNAL EAR: Yes external ears normal Neck/C-Spine: COMMON NORMALS: no JVD Resp: EFFORT & INSPECTION: Yes tachypneic AUSCULTATION: wheezes and diminished lung sounds Cardio: COMMON NORMALS: no JVD, regular rate, regular rhythm and No murmurs present (Cardio) RATE: regular rate RHYTHM: regular rhythm GI: COMMON NORMALS: Soft to palpation and No hepatosplenomegaly present AUSCULTATION: Yes normoactive bowel sounds PALPATION: Yes Soft to palpation, No Tenderness to palpation present (GI), No Guarding due to palpation present (GI) and Yes No hepatosplenomegaly present Extremity: COMMON NORMALS: normal to inspection, capillary refill normal, no clubbing, cyanosis or edema, no calf tenderness and no pedal edema Neuro: SENSORIUM/ORIENTATION: Yes oriented to person, Yes oriented to place and Yes oriented to time Skin: COMMON NORMALS: no rashes or lesions noted GENERAL SKIN EXAM: no rashes or lesions noted Course Vital Signs: Vital signs: Vital Signs Temperature 98.0 F 05/07/21 12:13 Pulse Rate 94 05/07/21 12:13 Respiratory Rate 20 H 05/07/21 12:13 Blood Pressure 117/74 05/07/21 14:00 Pulse Oximetry 96 05/07/21 12:13 MDM - SOB/Dyspnea MDM Narrative: Medical decision making narrative: Admit for pneumonia and acute exacerbation COPD patient has history of A. fib rate is controlled on Eliquis as well. He has nonspecific EKG changes some of which appear to be old. He will need serial troponins as well. Discussed Dr. Solorio orders are written Lab Data: Labs: Lab Results 05/05/21 05/05/21 05/05/21 Range/Units 08:22 09:07 09:07 WBC 9.1 (4.0-10.0) 10^3/ uL RBC 4.30 (4.1-5.3) 10^6/u L Hgb 12.8 (11.7-16.6) g/dL Hct 41.0 L (42.0-52.0) % MCV 95.3 H (80-94) fL MCH 29.8 (28.0-34.0) pg MCHC 31.2 (30.0-36.0) g/dL RDW 13.3 (12.1-15.1) % Plt Count 215 (130-400) 10^3/c mm MPV 11.1 H (7.4-10.4) fL Neut % (Auto) 75.1 % Lymph % (Auto) 16.3 % Haines % (Auto) 7.4 % Eos % (Auto) 0.3 % Baso % (Auto) 0.2 % Neut # (Auto) 6.82 (1.8-7.7) 10^3/u L Lymph # (Auto) 1.5 (0.8-4.8) 10^3/u L Haines # (Auto) 0.7 (0.2-0.9) 10^3/u L Eos # (Auto) 0.0 (0.0-0.8) 10^3/u L Baso # (Auto) 0.0 (0.0-0.1) 10^3/u L Nucleated RBC % (a uto) 0 % Nucleated RBCs # 0.0 /100WBC Specimen Type Arterial Sample Site Radial, right ABG pH 7.47 H (7.35-7.45) ABG pCO2 49.2 H (35-45) mmHg ABG pO2 43.0 L (80.0-100.0) mmH g ABG HCO3 36.0 H (22-26) mmol/L ABG O2 Saturation 82.4 ABG Base Excess 10.7 H (-2.0-2.0) mmol/ L Josh Test Pos A-a O2 Gradient 6.2 (5-10) mmHg Hematocrit 40.3 L (42-52) % Hgb O2 Saturation 80.9 L (95-100) % Carboxyhemoglobin 1.2 (0.4-20.1) %THgb Methemoglobin 0.6 (0.4-1.5) % Total Hemoglobin 13.1 L (14-18) g/dL Sodium 141.0 140 (131-143) mmol/L Potassium 3.2 L 3.8 (3.5-5.0) mmol/L Glucose 103.0 93 (70-115) mg/dL Ionized Calcium 1.3 (1.1-1.4) mmol/L O2 Delivery Device Simple mask O2 Liters/Min 14.0 % Engineering Lecturer ID Cak Chloride 98 (98-107) mmol/L Carbon Dioxide 32 H (22-29) mmol/L Anion Gap 13.8 (5-19) BUN 9 (8-23) mg/dL Creatinine 1.0 (0.7-1.2) mg/dL GFR Calculation Not Reportable Calculated Osmolal ity 288 (285-295) mOsm/k g Lactic Acid (0.5-2.2) mmol/L Calcium 9.8 (8.5-10.5) mg/dL Magnesium (1.7-2.3) mg/dL Total Bilirubin 1.1 (0.15-1.2) mg/dL AST 14 (0-40) U/L ALT 10 (0-41) U/L Alkaline Phosphata se 175 H (40-130) IU/L Troponin T Baselin e (0-15) ng/L NT-Pro-B Natriuret Pep (0-450) pg/mL Total Protein 6.0 L (6.6-8.7) g/dL Albumin 3.6 (3.5-5.2) g/dL Globulin 2.4 (1.3-4.6) g/dL TSH (0.27-4.20) uIU/ mL 05/05/21 05/05/21 05/05/21 Range/Units 09:07 09:07 09:07 WBC (4.0-10.0) 10^3/ uL RBC (4.1-5.3) 10^6/u L Hgb (11.7-16.6) g/dL Hct (42.0-52.0) % MCV (80-94) fL MCH (28.0-34.0) pg MCHC (30.0-36.0) g/dL RDW (12.1-15.1) % Plt Count (130-400) 10^3/c mm MPV (7.4-10.4) fL Neut % (Auto) % Lymph % (Auto) % Haines % (Auto) % Eos % (Auto) % Baso % (Auto) % Neut # (Auto) (1.8-7.7) 10^3/u L Lymph # (Auto) (0.8-4.8) 10^3/u L Haines # (Auto) (0.2-0.9) 10^3/u L Eos # (Auto) (0.0-0.8) 10^3/u L Baso # (Auto) (0.0-0.1) 10^3/u L Nucleated RBC % (a uto) % Nucleated RBCs # /100WBC Specimen Type Sample Site ABG pH (7.35-7.45) ABG pCO2 (35-45) mmHg ABG pO2 (80.0-100.0) mmH g ABG HCO3 (22-26) mmol/L ABG O2 Saturation ABG Base Excess (-2.0-2.0) mmol/ L Josh Test A-a O2 Gradient (5-10) mmHg Hematocrit (42-52) % Hgb O2 Saturation (95-100) % Carboxyhemoglobin (0.4-20.1) %THgb Methemoglobin (0.4-1.5) % Total Hemoglobin (14-18) g/dL Sodium (131-143) mmol/L Potassium (3.5-5.0) mmol/L Glucose (70-115) mg/dL Ionized Calcium (1.1-1.4) mmol/L O2 Delivery Device O2 Liters/Min % Engineering Lecturer ID Chloride (98-107) mmol/L Carbon Dioxide (22-29) mmol/L Anion Gap (5-19) BUN (8-23) mg/dL Creatinine (0.7-1.2) mg/dL GFR Calculation Calculated Osmolal ity (285-295) mOsm/k g Lactic Acid 2.4 H (0.5-2.2) mmol/L Calcium (8.5-10.5) mg/dL Magnesium 1.9 (1.7-2.3) mg/dL Total Bilirubin (0.15-1.2) mg/dL AST (0-40) U/L ALT (0-41) U/L Alkaline Phosphata se (40-130) IU/L Troponin T Baselin e 41 H (0-15) ng/L NT-Pro-B Natriuret Pep 5535 H (0-450) pg/mL Total Protein (6.6-8.7) g/dL Albumin (3.5-5.2) g/dL Globulin (1.3-4.6) g/dL TSH 1.99 (0.27-4.20) uIU/ mL Discharge Plan Discharge Patient Disposition: Admitted As Inpatient Admit Provider: Slick Ibarra Clinical Impression: Pneumonia, COPD with exacerbation, Acute and chronic respiratory failure with hypoxia, Atrial fibrillation, CAD (coronary artery disease) Condition: Stable Discharge Diet: Cardiac Discharge Activity: Increase activity as tolerated Coding Level of Care Code ED Records Management Technician for Saeg Fwd Exam Comprehensive
[2021-05-05 08:34] LABS: ABG PCO2 49.2 mmHg (35-45); ABG PH Result 7.47 (7.35-7.45); Alveolar-Arterial Oxygen Gradi 6.2 mmHg (5-10); Arterial Blood Gas Hematocrit 40.3 % (42-52); Base Excess ABG 10.7 mmol/L (-2.0-2.0); Blood Gas Allen Test Pos; Blood Gas Operator Identificat CAK; Blood Gas Sample Site Radial, right; Blood Gas Sample Type Arterial; Carboxyhemoglobin 1.2 %THgb (0.4-20.1); HGB O2 Sat 80.9 % (95-100); Ionized Calcium Level - ABG 1.3 mmol/L (1.1-1.4); Methemoglobin 0.6 % (0.4-1.5); Oxygen Device SIMPLE MASK; Oxygen Saturation ABG 82.4; Potassium Level - ABG 3.2 mmol/L (3.5-5.0); Total Hemoglobin 13.1 g/dL (14-18)
[2021-05-05 09:17] LABS: Basophils % 0.2 %; Eosinophils % 0.3 %; Hemoglobin 12.8 g/dL (11.7-16.6); Lymphocytes # 1.5 10^3/uL (0.8-4.8); Lymphocytes % 16.3 %; Mean Corpuscular HGB Conc 31.2 g/dL (30.0-36.0); Mean Corpuscular Hemoglobin 29.8 pg (28.0-34.0); Mean Corpuscular Volume 95.3 fL (80-94); Mean Platelet Volume 11.1 fL (7.4-10.4); Monocytes # 0.7 10^3/uL (0.2-0.9); Monocytes % 7.4 %; Neutrophils # 6.82 10^3/uL (1.8-7.7); Neutrophils % 75.1 %; Nucleated Red Blood Cells % 0 %; Platelet Count 215 10^3/cmm (130-400); Red Cell Distribution Width 13.3 % (12.1-15.1); White Blood Count 9.1 10^3/uL (4.0-10.0)
[2021-05-05] MEDS: sodium chloride 0.9% 1,000 ML 999 ML IV (09:18)
--- NOTE | 2021-05-05 09:21 | PC.NURSE ---
Pt became very nauseated and pale, BP dropped to 60s/40s with HR in the 40s. Dr Mejia notified and at bedside. 1L warmed NS given per VO. EKG obtained.
[2021-05-05 09:37] LABS: Lactic Sepsis W/Reflex 2.4 mmol/L (0.5-2.2)
[2021-05-05 09:38] LABS: Alanine Aminotransferase 10 U/L (0-41); Albumin Level 3.6 g/dL (3.5-5.2); Alkaline Phosphatase 175 IU/L (40-130); Aspartate Amino Transferase 14 U/L (0-40); Blood Urea Nitrogen 9 mg/dL (8-23); Calcium 9.8 mg/dL (8.5-10.5); Carbon Dioxide 32 mmol/L (22-29); Chloride 98 mmol/L (98-107); Globulin 2.4 g/dL (1.3-4.6); Glucose 93 mg/dL (65-115); Osmolality Calculated 288 mOsm/kg (285-295); Sodium 140 mmol/L (136-145); Total Bilirubin 1.1 mg/dL (0.15-1.2)
[2021-05-05 09:41] LABS: Anion Gap 13.8 (5-19); Potassium 3.8 mmol/L (3.5-5.1)
[2021-05-05 11:03] LABS: Reflex Lactate Order REFLEX LACTIC ORDERD
[2021-05-05 11:32] LABS: Lactic Acid level (Lactate) 1.2 mmol/L (0.5-2.2)
[2021-05-05] MEDS: levofloxacin-dextrose 5 % 750 MG/150 ML PREMIX 100 MG IV (11:52)
[2021-05-05 12:00] LABS: SARS Covid-2 Antigen Negative (Negative)
--- NOTE | 2021-05-05 12:53 | P.HP_ITS ---
Providers/Chief Complaint Primary Care Provider: Kalin Jordan DO Chief Complaint: SOB History of Present Illness Kev Poe SR is a 75 year old male who presents to the emergency department with shortness of breath going on for about 2 to 4 weeks. He reports he had a prednisone taper about a month ago. He has not had any recent antibiotics other than his every other day azithromycin. He states he is typically on about 8 L of oxygen. He has not been using any kind of home ventilator. He reports no fevers. Most of the time his cough is not productive. He felt a little nauseated today but has not been vomiting and denies any swallowing difficulty. He reports no exposure to Covid, history of Covid. He has been vaccinated with his last injection being over 4 weeks ago. In the emergency department he received some Levaquin, was placed on BiPAP. I believe he also received a nebulized treatment at one point. Review of Systems General: Reports: 10 or more systems reviewed and unremarkable except in HPI and below Const: Denies: fever(s) or chills Eyes: Denies: change in vision ENMT: Denies: throat pain Card: Denies: chest pain Resp: Reports: dyspnea, non-productive cough and wheezing GI: Denies: abdominal pain or vomiting : Denies: flank pain Musc: Denies: neck pain Skin/Breast: Denies: rash Neuro: Denies: headache(s) Psych: Denies: anxiety or depression Endo: Denies: polyuria Zeb/Lymph: Denies: easy bruising All/Imm: Denies: urticaria Medications/Allergies Home Medications Medication Instructions Recorded Confirmed Last Taken Type albuterol sulfate 2.5 mg INHALATION Q4H PRN 12/16/19 05/05/21 05/05/21 History albuterol sulfate 90 mcg/actuation 2 puff INHALATION Q6H PRN 12/16/19 05/05/21 05/05/21 History aerosol inhaler aspirin 81 mg tablet,delayed 81 mg PO DAILY 12/16/19 05/05/21 05/04/21 History release atorvastatin 20 mg tablet 20 mg PO DAILY 12/16/19 05/05/21 05/04/21 History cholecalciferol (vitamin D3) 1,000 unit PO DAILY 12/16/19 05/05/21 05/05/21 History clopidogrel 75 mg tablet 75 mg PO DAILY 12/16/19 05/05/21 05/05/21 History furosemide 40 mg tablet 40 mg PO DAILY 12/16/19 05/05/21 05/05/21 History metoprolol succinate 50 mg 50 mg PO DAILY 12/16/19 05/05/21 05/05/21 History tablet,extended release 24 hr nifedipine 30 mg tablet,extended 30 mg PO BID tab 12/16/19 05/05/21 05/05/21 History release olmesartan 40 mg tablet 40 mg PO DAILY 03/17/20 05/05/21 05/05/21 History nitroglycerin 0.4 mg sublingual 0.4 mg SUBLINGUAL Q5M PRN #30 tab 11/23/20 05/05/21 12/08/20 Rx tablet budesonide 0.5 mg/2 mL suspension See Rx Instructions .ROUTE 02/22/21 05/05/21 Unknown Rx for nebulization .COMPLEX #60 vial formoterol fumarate 20 mcg/2 mL See Rx Instructions .ROUTE 02/22/21 05/05/21 Unknown Rx solution for nebulization .COMPLEX #60 vial revefenacin 175 mcg/3 mL solution See Rx Instructions .ROUTE 02/22/21 05/05/21 Unknown Rx for nebulization .COMPLEX #30 vial fluticasone propionate 50 2 spray INTRANASAL DAILY #16 g 03/02/21 05/05/21 Unknown Rx mcg/actuation nasal spray,suspension tamsulosin 0.4 mg PO DAILY 05/05/21 05/05/21 05/05/21 History Allergies Allergy/AdvReac Type Severity Reaction Status Date / Time No Known Allergies Allergy Verified 04/01/21 09:39 PFSH Acute PFSH: Medical History (Updated 05/05/21 @ 13:05 by Slick Ibarra MD) BPH loc w urin obs/LUTS CAD (coronary artery disease) COPD (chronic obstructive pulmonary disease) Essential (primary) hypertension Hyperlipidemia Pleural thickening Urethral stricture Urolithiasis Ventricular bigeminy Surgical History H/O four vessel coronary artery bypass graft H/O heart surgery History of back surgery Family History Mother Diabetes Social History Smoking and tobacco status: former smoker Quit status (tobacco): has quit using tobacco Year quit tobacco: 1982 - 2PPD x 20 Years Smoking risk assessment/counseling performed?: No Alcohol intake: never Desire information about alcohol rehabilitation?: No Counseling given: No Desire information about substance/drug rehabilitation?: No Counseling given: No Lives independently: Yes Household members: spouse Marital status: Current occupational status: retired History of recent travel: No Current gender identity: Male Vitals/I&O/Wt Last Vital Signs Temp 97.7 F 05/05/21 08:20 Pulse 83 05/05/21 11:27 Resp 20 H 05/05/21 11:27 BP 123/71 05/05/21 11:27 Pulse Ox 94 05/05/21 11:27 05/04/21 05/05/21 05/05/21 22:59 06:59 14:59 Intake Total 1000 / 1000 Balance 1000 / 1000 Weight last 48 hrs Weight 80.739 kg Physical Exam Narrative: EXAM NARRATIVE: General exam is a white male, currently on BiPAP but conversive HEENT: Pupils equally round and reactive. Atraumatic. Oropharynx not examined as he is on BiPAP Neck is supple no lymphadenopathy or thyromegaly Cardiovascular regular rate and rhythm. No obvious murmur. Lungs coarse breath sounds bilaterally with occasional wheeze Abdomen is soft with positive bowel sounds. Obese. No obvious organomegaly was deferred Extremities no cyanosis clubbing. Trace edema is present. Skin no rash Neuro no obvious focal deficits. Data : 05/05/21 09:07 05/05/21 09:07 Micro: Microbiology 05/05/21 11:08 Blood Culture - Preliminary Blood SPECIMEN COLLECTED 05/05/21 09:07 Blood Culture - Preliminary Blood SPECIMEN COLLECTED Other data: Rapid Covid is negative ABG demonstrates a pH of 7.47, PCO2 of 49 and PO2 of 43 initially on a mask device. Initial lactic acid elevated with repeat being normal. LFTs normal with exce ption of alk phos of 175. Chest x-ray which I reviewed demonstrated chronic interstitial changes both sides. Cannot rule out pneumonia left lung. EKG demonstrated what appeared to be atrial fibrillation, left axis deviation. Occasional PVCs. Cues are noted anteriorly and some T inversion laterally. Nonspecific ST-T wave changes are also present. Previous echocardiogram December 2019 demonstrated 2/4 diastolic dysfunction and EF of 55% and mild aortic stenosis A&P Assessment and plan (1) Acute and chronic respiratory failure with hypoxia: BiPAP Treatment for COPD exacerbation as below Oxygen, wean as tolerated Status: Acute (2) Pneumonia: Levaquin 7 and 50 mg IV every 24 hours Check MRSA PCR Sputum culture Status: Acute (3) COPD with exacerbation: DuoNeb q. few hours Solu-Medrol 60 mg IV every 8 hours Wean BiPAP as tolerated Note the patient has severe underlying COPD and is typically been on 8 L of oxygen at home. Status: Acute (4) CAD (coronary artery disease): Continue aspirin, statin, beta-george, Plavix Troponin series Status: Acute (5) Atrial fibrillation: Continue beta-george. He is rate controlled For now DVT prophylaxis, aspirin I will discuss with patient whether full dose anticoagulation is warranted Check echocardiogram, TSH, magnesium Status: Acute Additional A&P Information Hypotension in the emergency department. Close follow-up. Check troponin, BNP. Check echocardiogram. Hypertension, continue current medications Hyperlipidemia, continue statin full code Lovenox for DVT prophylaxis GI prophylaxis with Protonix Attestations Medical Necessity Statement*: Will need greater than 2 midnight stay for evaluation and treatment of acute on chronic respiratory failure requiring BiPAP and pneumonia. Time Spent in Patient Care: Greater than 35 minutes Coding Level of Care Code Acute Cad Design Engineer for Pamella Bojorquez Diagnoses Acute and chronic respiratory failure with hypoxia J96.21 Pneumonia J18.9 COPD with exacerbation J44.1 CAD (coronary artery disease) I25.10 Atrial fibrillation I48.91
[2021-05-05 13:41] LABS: Troponin(5th) Baseline 41 ng/L (0-15)
[2021-05-05 13:44] LABS: Magnesium 1.9 mg/dL (1.7-2.3); NT Pro B Type Natriuretic Pept 5535 pg/mL (0-450); Thyroid Stimulating Hormone 1.99 uIU/mL (0.27-4.20)
[2021-05-05 13:59] LABS: Troponin 5 2HR 30.13 ng/L (0-15)
--- NOTE | 2021-05-05 14:58 | ECG_ITS ---
Test Date: 2021-05-05 Pat Name: Kev Poe Department: Room: ICU11 Gender: Male Net Wpf Developer: : 1945 Requested By: Slick Al Order Number: [id number] Edgar MD: Luba Wilkins M.D. Measurements Intervals [place] Rate: 76 P: LA: QRS: -45 QRSD: 130 T: 128 QT: 430 QTc: 485 Interpretive Statements ATRIAL fibrillation with a controlled ventricular response rate MARKED LEFT AXIS DEVIATION [QRS AXIS < -30] POSSIBLE RIGHT VENTRICULAR CONDUCTION DELAY [RSR (QR) IN V1/V2] LEFT VENTRICULAR HYPERTROPHY AND ST-T CHANGE [VOLTAGE CRITERIA PLUS ST/T ABNORMALITY] Compared to ECG 05/05/2021 08:24:25 Left-axis deviation now presentST (T wave) deviation now present Atrial fibrillation no longer present Ventricular premature complex(es) no longer present Aberrant conduction of supraventricular beat(s) no longer present Left anterior fascicular block no longer presentMyocardial infarct finding no longer presentT-wave abnormality no longer present Possible ischemia no longer present Electronically Signed On 05-05-2021 20:13:37 CDT by Luba Wilkins M.D. [id number]
--- NOTE | 2021-05-05 15:30 | PC.NURSE ---
PT here from ER via chair. PT on 10L NRB for transfer and placed on bipap 40% once in ICU. IV noted to the right ac. pt very short of breath.
[2021-05-05] MEDS: ipratropium-albuterol 3 mL Neb INHALATION ×3 (15:46→23:39)
[2021-05-05] MEDS: FUROsemide 10 mg/mL SDV 4mL 40 MG IVP (17:01)
[2021-05-05 19:11] LABS: Troponin 5 6HR 31.33 ng/L (0-15)
[2021-05-05] MEDS: budesonide 0.5 mg/2 mL Neb INHALATION (20:04)
[2021-05-05] MEDS: NIFEdipine ER (24 hr) 30 mg Tablet PO (20:31)
[2021-05-05 21:21] LABS: Troponin 5 6HR Delta 1.2 ng/L (0-12)
[2021-05-06] VITALS (37 sets, daily range): BP systolic 106–156; BP diastolic 50–88; PULSE 69–121; RESP 16–32; TEMP 36.3–36.6; O2SAT 89–100
[2021-05-06] MEDS: ipratropium-albuterol 3 mL Neb INHALATION ×5 (04:28→20:01)
[2021-05-06 05:09] LABS: Basophils % 0.3 %; Hemoglobin 11.9 g/dL (11.7-16.6); Lymphocytes # 0.4 10^3/uL (0.8-4.8); Lymphocytes % 11.6 %; Mean Corpuscular HGB Conc 31.3 g/dL (30.0-36.0); Mean Corpuscular Hemoglobin 28.9 pg (28.0-34.0); Mean Corpuscular Volume 92.2 fL (80-94); Mean Platelet Volume 10.9 fL (7.4-10.4); Monocytes # 0.1 10^3/uL (0.2-0.9); Monocytes % 1.3 %; Neutrophils # 3.27 10^3/uL (1.8-7.7); Neutrophils % 86.3 %; Nucleated Red Blood Cells % 0 %; Platelet Count 216 10^3/cmm (130-400); Red Blood Count 4.12 10^6/uL (4.1-5.3); Red Cell Distribution Width 13.2 % (12.1-15.1); White Blood Count 3.8 10^3/uL (4.0-10.0)
[2021-05-06 05:26] LABS: Alanine Aminotransferase 9 U/L (0-41); Albumin Level 3.5 g/dL (3.5-5.2); Alkaline Phosphatase 157 IU/L (40-130); Anion Gap 12.6 (5-19); Aspartate Amino Transferase 10 U/L (0-40); Blood Urea Nitrogen 20 mg/dL (8-23); Calcium 9.9 mg/dL (8.5-10.5); Carbon Dioxide 31 mmol/L (22-29); Chloride 100 mmol/L (98-107); Globulin 2.2 g/dL (1.3-4.6); Glucose 138 mg/dL (65-115); Osmolality Calculated 295 mOsm/kg (285-295); Potassium 3.6 mmol/L (3.5-5.1); Sodium 140 mmol/L (136-145); Total Bilirubin 0.7 mg/dL (0.15-1.2); Total Protein 5.7 g/dL (6.6-8.7)
--- NOTE | 2021-05-06 07:00 | USCV_ITS ---
Kev Poe Age: 75 Gender: M : 1945 Exam Date: 05/06/2021 07:22 Ordering Phys: Slick Ibarra MD Technologist: [place] [facility] [place]: Atrial fibrillation BP: 132 / 76 HR: 84 Rhythm: Atrial fibrillation Technical Quality: Adequate MEASUREMENTS (Male / Female) Normal Values 2D ECHO LV Diastolic Diameter PLAX 5.3 cm 4.2 - 5.9 / 3.9 - 5.3 cm LV Systolic Diameter PLAX 3.6 cm IVS Diastolic Thickness 1.1 cm 0.6 - 1.0 / 0.6 - 0.9 cm IVS Systolic Thickness 1.4 cm LVPW Diastolic Thickness 1.1 cm 0.6 - 1.0 / 0.6 - 0.9 cm LVPW Systolic Thickness 1.7 cm LVOT Diameter 2.1 cm LV Ejection Fraction 2D Teich 59.7 % LV Ejection Fraction MOD 2C 43.8 % LV Ejection Fraction 2C AL 45.2 % LA Diameter 5.2 cm LA Width 4.4 cm LA Height 5.3 cm RA Width 3.9 cm RA Height 6.1 cm Aorta at Sinotubular Diameter 2.9 cm DOPPLER AV Peak Velocity 141.0 cm/s LVOT Peak Velocity 124.0 cm/s AV Area Cont Eq vti 3.1 cm squared AV Area Cont Eq pk 3.0 cm squared MV Area PHT 5.1 cm squared Mitral E to A Ratio 1.5 MV E' Velocity 77.0 cm/s Mitral E to MV E' Ratio 16.4 Mitral E to LV E' Lateral Ratio 14.9 Mitral E to LV E' Septal Ratio 18.5 TR Peak Velocity 430.0 cm/s TR Peak Gradient 74.0 mmHg TV Peak E Velocity 138.0 cm/s Right Atrial Pressure 3.0 mmHg Pulmonary Artery Systolic Pressu 77.0 mmHg PV Peak Velocity 70.0 cm/s FINDINGS Left Ventricle Normal left ventricular cavity size. Mildly reduced left ventricular systolic function. Left ventricular ejection fraction is estimated at 45-50 %. No diagnostic regional wall motion abnormality could be identified. Interpretation limited by image quality and rhythm. Abnormal septal motion consistent with conduction abnormality. Rhythm precludes evaluation of diastolic function. Right Ventricle Normal right ventricular size and systolic function. Right ventricular systolic pressure 77 mmHg. Right Atrium Mildly increased right atrial size. Left Atrium Moderately increased left atrial size. Mitral Valve Moderate mitral annular calcification. No mitral valve stenosis. Trace mitral valve regurgitation. Aortic Valve Structurally normal trileaflet aortic valve. No aortic valve stenosis. No aortic valve regurgitation. Tricuspid Valve Structurally normal tricuspid valve. Mild tricuspid valve regurgitation. Pulmonic Valve Structurally normal pulmonic valve. Trace pulmonary valve regurgitation. Pericardium No pericardial effusion. Aorta Normal size aortic root and proximal ascending aorta. CONCLUSIONS 1. Normal left ventricular cavity size. Mildly reduced left ventricular systolic function. Left ventricular ejection fraction is estimated at 45-50 %. No diagnostic regional wall motion abnormality could be identified. 2. Normal right ventricular size and systolic function. 3. Mild tricuspid valve regurgitation. 4. Severe pulmonary hypertension with pulmonary artery pressure estimated at 77 mmHg. Gege Alejo MD (Electronically Signed) Final Date: 06 May 2021 18:54 S
--- NOTE | 2021-05-06 08:25 | PC.CHAP ---
Pastoral Care Encounter/Spiritual Assessment Type of Contact [] Declined industrial engineering analyst visit [] Patient/Family/Request visit [] Outpatient visit [] Follow-up visit [] Physician referral [] Code/Alert [x] Routine visit [] Staff referral [] Actively dying [] Patient sleeping [] Family support [] [] Out of room [] Palliative care [] [x] Receiving care in room [] Pre-surgical visit [] Trauma [] Long length of stay [x] ICU visit [] Other: Relational/Emotional Strength [] Patient feels connected with others/family/visitors/staff [] Distress [] Loneliness/isolation [] Abandonment Spirituality of Patient [] Person of Malathi [] Attends Congregation of their Malathi [] Believes in Prayer [] Reads Bible or Tenriism materials [] There are Spiritual issues to be addressed Billet Header Interventions [x] Prayer [] Active listening [] Non-anxious presence [] Spiritual/emotional support [] Crisis/trauma care [] Spiritual counseling [] Bereavement support [] Provided bereavement packet [] Provided Bible/devotional materials [] Provided toy/stuffed animal, coloring book to patient or family member [] Provided Communion [] Anointing/[place] [] Salvation [x] Completed spiritual assessment [] Other: Impact on Illness or Injury [] Angry [] Fearful [] Anxious [] Often cries [] Exhaustion [] Unable to work [] Unable to attend uatsdin [] Unable to walk/stand [] Unable to read [] Unable to drive [] Unable to eat/drink [] Unable to sleep [] Unable to be with family [] Patient intubated [] Other: Summary Time spent with patient
[2021-05-06] MEDS: FUROsemide 10 mg/mL SDV 4mL 40 MG IVP ×2 (09:08→20:55)
[2021-05-06] MEDS: budesonide 0.5 mg/2 mL Neb INHALATION ×2 (09:20→20:01)
[2021-05-06] MEDS: aspirin 81 mg EC Tablet PO (10:02)
[2021-05-06] MEDS: atorvastatin 40 mg Tablet 20 MG PO (10:03)
[2021-05-06] MEDS: tamsulosin 0.4 mg Capsule PO (10:03)
[2021-05-06] MEDS: clopidogrel 75 mg Tablet PO (10:04)
[2021-05-06] MEDS: metoprolol succinate ER (24 HR) 50 mg Tablet PO (10:04)
[2021-05-06] MEDS: losartan 50 mg Tablet 100 MG PO (10:04)
[2021-05-06] MEDS: pantoprazole DR 40 mg Tablet PO (10:04)
[2021-05-06] MEDS: levofloxacin-dextrose 5 % 750 MG/150 ML PREMIX 100 MG IV (10:05)
[2021-05-06] MEDS: NIFEdipine ER (24 hr) 30 mg Tablet PO ×2 (10:12→20:54)
--- NOTE | 2021-05-06 10:21 | PM.PN ---
Subjective Subjective: Interval history: Kev feels that his breathing is a little bit better. Still short of breath. Has been able to be weaned off BiPAP. No chest discomfort. Medications: Reviewed: Yes Vitals/I&O/Wt Last Vital Signs Temp 97.9 F 05/06/21 05:38 Pulse 100 05/06/21 09:23 Resp 16 05/06/21 09:15 BP 149/78 05/06/21 06:00 Pulse Ox 92 05/06/21 09:15 05/05/21 05/06/21 05/06/21 22:59 06:59 14:59 Intake Total 240 / 1390 120 / 1510 Balance 240 / 1390 120 / 1510 Weight last 48 hrs Weight 80.694 kg Weight 80.739 kg Physical Exam Narrative: EXAM NARRATIVE: General exam is a white male, currently on 8 L of oxygen, high flow nasal cannula Neck is supple no lymphadenopathy or thyromegaly Cardiovascular regular rate and rhythm. No obvious murmur. Lungs no wheeze. Diminished breath sounds at the bases. Slightly coarse Abdomen is soft with positive bowel sounds. Obese. No obvious organomegaly Extremities no cyanosis clubbing. Trace edema is present. Data : 05/06/21 04:41 05/06/21 04:41 Micro: Microbiology 05/05/21 09:07 Blood Culture - Preliminary Blood NEGATIVE TO DATE 05/05/21 11:08 Blood Culture - Preliminary Blood SPECIMEN COLLECTED A&P Assessment and plan (1) Acute and chronic respiratory failure with hypoxia: Transition to high flow oxygen at 8 L Treatment for COPD exacerbation as below Continue to wean oxygen as tolerated Status: Acute (2) Pneumonia: Continue Levaquin IV every 24 hours Await MRSA PCR Sputum culture Status: Acute (3) COPD with exacerbation: Continue DuoNeb every 4 hours Reduce Solu-Medrol to every 12 hours Note the patient has severe underlying COPD and is typically been on 8 L of oxygen at home. Status: Acute (4) CAD (coronary artery disease): Continue aspirin, statin, beta-george, Plavix Troponin series demonstrated no elevation or significant delta. Status: Acute (5) Atrial fibrillation: Continue beta-george. Heart rate slightly higher this morning. We will see how he responds to his beta-george For now DVT prophylaxis, aspirin I discussed with him anticoagulation and he wants to think about this and have me review it with his general expeditor at [place]. Await echocardiogram. TSH and magnesium level normal. Status: Acute Additional A&P Information Hypotension in the emergency department. No evidence of recurrence Elevated BNP consistent with acute diastolic heart failure, possibly some contribution of atrial fibrillation. Lasix given yesterday. Will initiate 40 mg IV every 12 hours. Hypertension, continue current medications Hyperlipidemia, continue statin full code Lovenox for DVT prophylaxis GI prophylaxis with Protonix May transfer out of ICU Attestations Medical Necessity Statement*: Needs continued hospitalization for IV steroids secondary to COPD exacerbation and treatment of acute diastolic heart failure present on admission. 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
[2021-05-06] MEDS: enoxaparin 40 mg/0.4 mL Syringe SUBCUT (11:22)
--- NOTE | 2021-05-06 13:03 | PC.NURSE ---
Received report from JUAN C Arce in ICU. Patient arrived to the floor, is alert and oriented. Patient VS stable, has been oriented to room and call green. Nurse will continue to monitor.
--- NOTE | 2021-05-06 13:11 | PC.NURSE ---
1255 Transfered patient via wheelchair to 101 with O2 on and phone in his hand. No shoes found in room when patient asked about them, he said maybe his daughter took them home. No c/o's. Assisted patient into chair in room 101 and gave him his call light and notified desk he is there.
--- NOTE | 2021-05-06 21:46 | PC.NURSE ---
Bedside report received from Roxanne WARE. Patient is A & O, resting in bed watching TV. Patient voices no C/O of pain or other needs at this time. Nurse will continue to monitor.
[2021-05-07] VITALS (25 sets, daily range): BP systolic 112–117; BP diastolic 68–74; PULSE 82–101; RESP 15–30; TEMP 36.6–36.7; O2SAT 72–98
[2021-05-07] MEDS: ipratropium-albuterol 3 mL Neb INHALATION ×4 (00:02→11:36)
[2021-05-07 04:06] LABS: Basophils % 0.2 %; Hematocrit 37.1 % (42.0-52.0); Hemoglobin 11.4 g/dL (11.7-16.6); Lymphocytes # 0.4 10^3/uL (0.8-4.8); Lymphocytes % 2.9 %; Mean Corpuscular HGB Conc 30.7 g/dL (30.0-36.0); Mean Corpuscular Hemoglobin 29.1 pg (28.0-34.0); Mean Corpuscular Volume 94.6 fL (80-94); Mean Platelet Volume 10.5 fL (7.4-10.4); Monocytes # 0.3 10^3/uL (0.2-0.9); Neutrophils # 12.23 10^3/uL (1.8-7.7); Neutrophils % 94.2 %; Nucleated Red Blood Cells % 0 %; Platelet Count 222 10^3/cmm (130-400); Red Blood Count 3.92 10^6/uL (4.1-5.3); Red Cell Distribution Width 13.6 % (12.1-15.1)
[2021-05-07 04:28] LABS: Anion Gap 15.7 (5-19); Blood Urea Nitrogen 31 mg/dL (8-23); Carbon Dioxide 31 mmol/L (22-29); Chloride 99 mmol/L (98-107); Glucose 150 mg/dL (65-115); Osmolality Calculated 303 mOsm/kg (285-295); Potassium 3.7 mmol/L (3.5-5.1); Sodium 142 mmol/L (136-145)
[2021-05-07] MEDS: budesonide 0.5 mg/2 mL Neb INHALATION (07:32)
[2021-05-07] MEDS: FUROsemide 10 mg/mL SDV 4mL 40 MG IVP (09:02)
[2021-05-07] MEDS: losartan 50 mg Tablet 100 MG PO (09:02)
[2021-05-07] MEDS: aspirin 81 mg EC Tablet PO (09:02)
[2021-05-07] MEDS: tamsulosin 0.4 mg Capsule PO (09:03)
[2021-05-07] MEDS: pantoprazole DR 40 mg Tablet PO (09:03)
[2021-05-07] MEDS: metoprolol succinate ER (24 HR) 50 mg Tablet PO (09:04)
[2021-05-07] MEDS: clopidogrel 75 mg Tablet PO (09:05)
[2021-05-07] MEDS: atorvastatin 40 mg Tablet 20 MG PO (09:05)
[2021-05-07] MEDS: NIFEdipine ER (24 hr) 30 mg Tablet PO (09:05)
[2021-05-07] MEDS: levofloxacin-dextrose 5 % 750 MG/150 ML PREMIX 100 MG IV (10:25)
--- NOTE | 2021-05-07 11:45 | P.DS_ITS ---
Discharge Providers Date of Admission: 05/05/21 11:01 Date of Discharge: May 07, 2021 Attending Provider at Admission: Slick Ibarra MD Attending Provider at Discharge: Slick Ibarra MD Primary Care Provider: Kalin Jordan DO Diagnoses at Discharge Discharge Diagnosis (1) Acute and chronic respiratory failure with hypoxia: Status: Acute (2) Pneumonia: Status: Acute (3) COPD with exacerbation: Status: Acute (4) CAD (coronary artery disease): Status: Acute (5) Atrial fibrillation: Status: Acute Reason for Visit Reason for Visit: SOB Hospital Course Hospital Course Kev is a 75-year-old white male who presented to the hospital short of breath. He had no chest discomfort. He has severe underlying COPD. He was admitted on May 05, and required BiPAP. Typically he is on 5 to 8 L at rest, and much more with any exertion. He was placed on IV Levaquin, Solu-Medrol, and BiPAP. Atrial fibrillation with controlled rate was noted, and there was concern of fluid overload and he was also diuresed. Rapid Covid was checked while in the hospital and negative. BNP was slightly high. Echocardiogram was performed which demonstrated an ejection fraction of 45 to 50%, severe pulmonary hypertension. Recent previous echocardiogram at [facility] demonstrated an EF of 50 %. With the above treatment he greatly improved and was weaned down to 5 L of oxygen per nasal cannula. A home O2 evaluation was performed demonstrating he needed 5 L at rest, 10 L with exertion. This is an improvement from the 8 L that he reported he was on at rest coming into the hospital. I discussed with him risks and benefits of anticoagulation secondary to atrial fibrillation, and he elected to be anticoagulated. As he was already on aspirin and Plavix aspirin was discontinued with initiation of anticoagulation. He will follow-up with his thread inspector, livestock auctioneer, and primary care provider. He will finish up 5 more days of Levaquin as well as prednisone. He will continue his regular medications for pulmonary toilet. Physical Exam Narrative: EXAM NARRATIVE: General exam no apparent distress Cardiovascular irregular, irregular Lungs diminished breath sounds at the bases but no crackles Abdomen is soft nontender with positive bowel sounds Extremities no edema Discharge Data Data Completed and Pending: Completed Studies During Hospitalization Category Date Time Status XR chest 1V jenifer ble [id number] Stat Exams 05/05/21 08:15 Completed CV echo complete* [id number] Routine Ultrasound 05/06/21 07:00 Completed Pending at discharge Category Date Time Status Blood Culture Sta t Lab 05/05/21 11:08 Results Sputum Culture an d Gram Stain Darlene ne Lab 05/05/21 15:09 Uncollected Labs from last 24 hours 05/07/21 05/07/21 03:26 03:26 WBC 13.0 H RBC 3.92 L Hgb 11.4 L Hct 37.1 L MCV 94.6 H MCH 29.1 MCHC 30.7 RDW 13.6 Plt Count 222 MPV 10.5 H Neut % (Auto) 94.2 Lymph % (Auto) 2.9 [place] % (Auto) 2.0 Eos % (Auto) 0.0 Baso % (Auto) 0.2 Neut # (Auto) 12.23 H Lymph # (Auto) 0.4 L [place] # (Auto) 0.3 Eos # (Auto) 0.0 Baso # (Auto) 0.0 Nucleated RBC % (a uto) 0 Nucleated RBCs # 0.0 Sodium 142 Potassium 3.7 Chloride 99 Carbon Dioxide 31 H Anion Gap 15.7 BUN 31 H Creatinine 1.2 GFR Calculation Not Reportable Glucose 150 H Calculated Osmolal ity 303 H Calcium 10.0 Vitals: Last Vital Signs Temp 97.8 F 05/07/21 04:26 Pulse 94 05/07/21 11:43 Resp 18 05/07/21 11:38 BP 117/74 05/07/21 10:00 Pulse Ox 95 05/07/21 11:38 Discharge Plan Discharge Patient Disposition: Home Condition: Stable Prescriptions: New levofloxacin 750 mg tablet 750 mg PO DAILY 5 Days Qty: 5 RF: 0 Eliquis 5 mg tablet 5 mg PO BID Qty: 60 RF: 0 prednisone 20 mg tablet 40 mg PO DAILY 35 Days Qty: 5 RF: 0 furosemide [Lasix] 40 mg tablet 60 mg PO QAM Qty: 45 RF: 0 Continued metoprolol succinate 50 mg tablet extended release 24 hr 50 mg PO DAILY RF: 0 clopidogrel 75 mg tablet 75 mg PO DAILY RF: 0 albuterol sulfate [Ventolin HFA] 90 mcg/actuation HFA aerosol inhaler 2 puff INHALATION Q6H PRN (Reason: sob) RF: 0 nifedipine 30 mg tablet extended release 30 mg PO BID RF: 0 atorvastatin 20 mg tablet 20 mg PO DAILY RF: 0 cholecalciferol (vitamin D3) 1,000 unit PO DAILY RF: 0 albuterol sulfate 2.5 mg /3 mL (0.083 %) solution for nebulization 2.5 mg INHALATION Q4H PRN (Reason: sob) RF: 0 olmesartan 40 mg tablet 40 mg PO DAILY RF: 0 fluticasone propionate [Flonase Allergy Relief] 50 mcg/actuation spray,suspension 2 spray intranasal DAILY Qty: 16 RF: 3 nitroglycerin 0.4 mg tablet, sublingual 0.4 mg sublingual Q5M PRN (Reason: chest pain) Qty: 30 RF: 0 formoterol fumarate [Perforomist] 20 mcg/2 mL solution for nebulization See Rx Instructions .ROUTE .COMPLEX Qty: 60 RF: 11 revefenacin [Yupelri] 175 mcg/3 mL solution for nebulization See Rx Instructions .ROUTE .COMPLEX Qty: 30 RF: 11 budesonide 0.5 mg/2 mL suspension for nebulization See Rx Instructions .ROUTE .COMPLEX Qty: 60 RF: 11 tamsulosin 0.4 mg capsule 0.4 mg PO DAILY RF: 0 Discontinued furosemide 40 mg tablet 40 mg PO DAILY RF: 0 aspirin [Adult Aspirin Regimen] 81 mg tablet,delayed release (DR/EC) 81 mg PO DAILY RF: 0 Discharge Orders: Discharge Order (Routine); Ordered 05/07/21 Ordered By: Slick Ibarra Referrals: Celestino Harris MD [Referring] - 2 weeks Josie Jacobson MD [Physician] - 2 weeks Kalin Jordan DO [Primary Care Provider] - 4-7 days Discharge Diet: Cardiac Discharge Activity: Increase activity as tolerated Patient Instructions: Opioid Safety Activity Restrictions/Additional Instructions: May return to pulmonary rehabilitation in 1 week Take all medicine as prescribed If any evidence of bleeding such as black or tarry stools or bright red blood in stools or nosebleeds contact your primary care provider May resume oxygen 5 L at rest, 10 L with exertion Discharge Attestations Time Spent in Discharge Care*: greater than 30 min Quality Metrics Clinical Quality Measures During this hospital stay, did patient experience: None Coding Level of Care Code Acute Chg FW DC note Diagnoses Acute and chronic respiratory failure with hypoxia J96.21 Pneumonia J18.9 COPD with exacerbation J44.1 CAD (coronary artery disease) I25.10 Atrial fibrillation I48.91
[2021-05-07] MEDS: enoxaparin 40 mg/0.4 mL Syringe SUBCUT (11:47)
--- NOTE | 2021-05-07 14:05 | PC.NURSE ---
Pt discharged home. IV removed no redness or swelling noted. Pts discharge instructions given along with prescriptions and follow up appointments. Pt had no c/o pain or discomfort at the time of discharge. Pt transferred out via wheelchair accompanied by staff.
== END 2021-05-07 13:45 | disposition home or self-care (01) | DRG 190 ==
LOC: ER 09:59 → ICU 13:49 → CSU 05-06 12:46
PROVIDERS: Admitting Provider Internal Medicine; Emergency Provider Family Medicine; PCP Internal Medicine; Visit Provider Internal Medicine
DX: J44.1 Chronic obstructive pulmonary disease with (acute) exacerbation (principal); J18.9 Pneumonia, unspecified organism; J96.21 Acute and chronic respiratory failure with hypoxia; I50.31 Acute diastolic (congestive) heart failure; J44.0 Chronic obstructive pulmonary disease with (acute) lower respiratory infection; N40.1 Benign prostatic hyperplasia with lower urinary tract symptoms; I25.10 Atherosclerotic heart disease of native coronary artery without angina pectoris; I11.0 Hypertensive heart disease with heart failure; E78.5 Hyperlipidemia, unspecified; I48.91 Unspecified atrial fibrillation; I95.9 Hypotension, unspecified; I27.20 Pulmonary hypertension, unspecified; Z79.82 Long term (current) use of aspirin; Z87.891 Personal history of nicotine dependence
CPT/HCPCS: 36415; 36600; 71045; 80048; 80051; 80053; 82330; 82805; 83605; 83735; 83880; 84443; 84484; 85025; 87040; 87426; 87641; 93005; 93306; 94640; 94660; 96365; 96372; 97161; 97530; 99285; J1650; J1940; J1956; J2930; J7030; J7626

== ENCOUNTER 2021-06-07 12:00 | Outpatient (CLI) | payer OTHER, MEDICARE, SELFPAY | END 2021-06-07 12:01 | disposition home or self-care (01) | LOC: SLEEP 06-08 15:35 | PROVIDERS: PCP Internal Medicine; Visit Provider Internal Medicine Critical Care Medicine | DX: J96.21 Acute and chronic respiratory failure with hypoxia (principal) | CPT/HCPCS: 94762 ==

== ENCOUNTER 2021-08-24 13:58 | Outpatient (CLI) | payer MEDICARE, OTHER, SELFPAY ==
--- NOTE | 2021-08-24 14:16 | XR_ITS ---
WS: [id number] PROCEDURE: XR chest 2V* [id number] CLINICAL INFORMATION: shortness of breath COMPARISON: May 05, 2021 FINDINGS: Heart: Cardiomegaly. Sternotomy. Aortic calcification. Mediastinal clips. Lungs: Patchy infiltrates in the left lower lobe unchanged from previous. Improved infiltrates in the left midlung. Tiny bilateral pleural effusions. Chronic emphysematous changes. Bones: Osteopenia. Stable osteochondroma right scapula. XR/XR chest 2V* [id number] IMPRESSION: 1. Patchy interstitial infiltrates in the left lower lobe unchanged from previ ous. Recommend correlation for pneumonia. 2. Patchy interstitial infiltrates in the left midlung have improved compared to May 05, 2021. 3. Trace bilateral pleural fluid. 4. No other significant changes. 5. Stable cardiomegaly.
== END 2021-08-24 13:59 | disposition home or self-care (01) ==
PROVIDERS: PCP Internal Medicine; Visit Provider Internal Medicine Critical Care Medicine
DX: J44.9 Chronic obstructive pulmonary disease, unspecified (principal); R06.02 Shortness of breath; I51.7 Cardiomegaly; R91.8 Other nonspecific abnormal finding of lung field
CPT/HCPCS: 71046

== ENCOUNTER 2021-09-13 06:00 | Outpatient (RCR) | payer MEDICARE, OTHER, SELFPAY | END 2021-10-12 23:59 | disposition home or self-care (01) | LOC: PULRHB 06:00 | PROVIDERS: PCP Internal Medicine; Visit Provider Internal Medicine Critical Care Medicine | DX: J44.9 Chronic obstructive pulmonary disease, unspecified (principal) | CPT/HCPCS: 94618 ==

== ENCOUNTER 2021-10-13 06:00 | Outpatient (RCR) | payer MEDICARE, OTHER, SELFPAY | END 2021-11-12 23:59 | disposition home or self-care (01) | LOC: PULRHB 06:00 | PROVIDERS: PCP Internal Medicine; Visit Provider Internal Medicine Critical Care Medicine | DX: J44.9 Chronic obstructive pulmonary disease, unspecified (principal) | CPT/HCPCS: G0237; G0238; G0239 ==

== ENCOUNTER 2021-10-26 08:16 | Inpatient (IN) | payer MEDICARE, OTHER, SELFPAY ==
[2021-10-26] VITALS (32 sets, daily range): BP systolic 96–125; BP diastolic 52–82; PULSE 71–144; RESP 12–35; TEMP 36.4–37.1; O2SAT 91–984; BMI 28.0
--- NOTE | 2021-10-26 08:20 | ED_ITS ---
HPI - COVID General: Chief Complaint: Shortness of Breath/Dyspnea Stated Complaint: SOB Time Seen by Provider: 10/26/21 08:20 History of Present Illness: HPI Narrative: 68-year-old male comes in complaining of significant shortness of breath and cough. Presents from home. He has been vaccinated recently had gotten his booster. On arrival here he is on BiPAP via EMS he is awake and alert but his oxygen sats are in the 80s. Switch back to our BiPAP system he improved significantly. He denies any chest or abdominal pain cough has been nonproductive he has had some diarrhea and myalgias no fever that he has noted. MD complaint: has COVID symptoms Prior covid testing: no COVID 19 common symptoms: positive cough, non-productive cough, dyspnea, fatigue, body aches, nasal congestion and diarrhea COVID 19 other sytmptoms: positive requiring oxygen; negative chest pain Onset (ago): day(s) Severity: moderate Pertinent comorbid conditions: COPD/respiratory disease Treatment prior to arrival: none COVID Results: SARS-CoV-2 Antigen (Rapid) Negative (Negative) 10/26/21 08:34 10/26/21 Nasal/Oral Coronavirus 2019 PCR Not detected 12/21/20 10:13 12/21/20 Review of Systems Const: Reports: body aches and fatigue ENMT: Reports: nasal congestion Card: Denies: chest pain, edema, dyspnea on exertion or orthopnea Resp: Reports: dyspnea and non-productive cough GI: Reports: diarrhea : Denies: flank pain, dysuria, urinary frequency or urinary urgency Skin/Breast: Denies: rash or pruritus PFSH ED PFSH: Medical History BPH loc w urin obs/LUTS CAD (coronary artery disease) COPD (chronic obstructive pulmonary disease) Essential (primary) hypertension Hyperlipidemia Pleural thickening Urethral stricture Urolithiasis Ventricular bigeminy Surgical History H/O four vessel coronary artery bypass graft H/O heart surgery History of back surgery Family History Mother Diabetes Social History Quit status (tobacco): has quit using tobacco Year quit tobacco: 1982 - 2PPD x 20 Years Smoking risk assessment/counseling performed?: No Alcohol intake: never Desire information about alcohol rehabilitation?: No Counseling given: No Desire information about substance/drug rehabilitation?: No Counseling given: No Lives independently: Yes Household members: spouse Marital status: Current occupational status: retired History of recent travel: No Current gender identity: Male Physical Exam Const: GENERAL APPEARANCE: cooperative and comfortable ORIENTATION/CONSCIOUSNESS: Yes awake, Yes oriented to person, Yes oriented to place and Yes oriented to time HENMT: COMMON NORMALS: normocephalic, atraumatic and hearing grossly normal b ilaterally HEAD & SCALP: normocephalic and atraumatic Neck/C-Spine: COMMON NORMALS: no JVD Resp: AUSCULTATION: rhonchi and wheezes Cardio: COMMON NORMALS: no JVD, regular rate, regular rhythm and No murmurs present (Cardio) RATE: regular rate RHYTHM: regular rhythm GI: COMMON NORMALS: Soft to palpation and No hepatosplenomegaly present AUSCULTATION: Yes normoactive bowel sounds PALPATION: Yes Soft to palpation, No Tenderness to palpation present (GI), No Guarding due to palpation present (GI) and Yes No hepatosplenomegaly present Extremity: COMMON NORMALS: normal to inspection, capillary refill normal, no clubbing, cyanosis or edema, no calf tenderness and no pedal edema Neuro: SENSORIUM/ORIENTATION: Yes oriented to person, Yes oriented to place and Yes oriented to time Skin: COMMON NORMALS: no rashes or lesions noted GENERAL SKIN EXAM: no rashes or lesions noted Course Vital Signs: Vital signs: Vital Signs Temperature 97.6 F 10/26/21 14:45 Pulse Rate 94 10/27/21 07:46 Respiratory Rate 20 H 10/27/21 07:46 Blood Pressure 110/59 10/27/21 08:04 Pulse Oximetry 90 10/27/21 07:46 MDM - COVID MDM Narrative: Medical decision making narrative: Labs and imaging reviewed as found on the chart. Patient significant increased oxygen requirement. Acute on chronic respiratory failure with left-sided pneumonia and COPD exacerbation. We will go ahead and admit him to the hospital of discussed with Dr. Ibarra orders are written. Lab Data: Labs: Lab Results 10/26/21 10/26/2121 08:30 08:34 08:34 WBC 8.6 10^3/uL 10^3/ uL (4.0-10.0) RBC 4.12 10^6/uL 10^6 /uL (4.1-5.3) Hgb 12.5 g/dL g/dL (11.7-16.6) Hct 38.6 % L % (42.0-52.0) MCV 93.7 fl fl (80-94) MCH 30.3 pg pg (28.0-34.0) MCHC 32.4 g/dL g/dL (30.0-36.0) RDW 13.8 % % (12.1-15.1) Plt Count 167 10^3/cmm 10^3 /cmm (130-400) MPV 11.2 fL H fL (7.4-10.4) Neut % (Auto) 75.5 % % Lymph % (Auto) 15.1 % % [place] % (Auto) 8.6 % % Eos % (Auto) 0.0 % % Baso % (Auto) 0.2 % % Neut # (Auto) 6.52 10^3/uL 10^3 /uL (1.8-7.7) Lymph # (Auto) 1.3 10^3/uL 10^3/ uL (0.8-4.8) [place] # (Auto) 0.7 10^3/uL 10^3/ uL (0.2-0.9) Eos # (Auto) 0.0 10^3/uL 10^3/ uL (0.0-0.8) Baso # (Auto) 0.0 10^3/uL 10^3/ uL (0.0-0.1) Nucleated RBC % (a uto) 0 % % Nucleated RBCs # 0.0 /100WBC /100W BC Specimen Type Arterial Sample Site Radial, right ABG pH 7.44 (7.35-7.45) ABG pCO2 44.9 mmHg mmHg (35-45) ABG pO2 139.0 mmHg H mmHg (80.0-100.0) ABG HCO3 30.8 mmol/L H mmo l/L (22-26) ABG O2 Saturation 99.5 ABG Base Excess 5.8 mmol/L H mmol /L (-2.0-2.0) Josh Test Pos A-a O2 Gradient 58.6 mmHg H mmHg (5-10) Hematocrit 41.6 % L % (42-52) Hgb O2 Saturation 98.1 % % (95-100) Carboxyhemoglobin 0.8 %THgb %THgb (0.4-20.1) Methemoglobin 0.7 % % (0.4-1.5) Total Hemoglobin 13.6 g/dL L g/dL (14-18) Sodium 136.0 mmol/L mmol /L 137 mmol/L mmol/L (131-143) (136-145) Potassium 3.4 mmol/L L mmol /L 3.7 mmol/L mmol/L (3.5-5.0) (3.5-5.1) Glucose 91.0 mg/dL mg/dL 84 mg/dL mg/dL (70-115) (65-115) Ionized Calcium 1.2 mmol/L mmol/L (1.1-1.4) O2 Delivery Device Bipap FiO2 90.0 % % PEEP 10.0 cmH20 cmH20 Director Of [employer] Talent ID Rc Chloride 93 mmol/L L mmol/ L (98-107) Carbon Dioxide 24 mmol/L mmol/L (22-29) Anion Gap 23.7 H (5-19) BUN 22 mg/dL mg/dL (8-23) Creatinine 1.1 mg/dL mg/dL (0.7-1.2) GFR Calculation Not Reportable Calculated Osmolal ity 287 mOsm/kg mOsm/ kg (285-295) Lactic Acid Lactic Acid (Sepsi s) Calcium 9.1 mg/dL mg/dL (8.5-10.5) Magnesium 1.6 mg/dL L mg/dL (1.7-2.3) Total Bilirubin 1.3 mg/dL H mg/dL (0.15-1.2) AST 23 U/L U/L (0-40) ALT 15 U/L U/L (0-41) Alkaline Phosphata se 103 IU/L IU/L (40-130) Creatine Kinase 70 U/L U/L (39-308) NT-Pro-B Natriuret Pep 2912 pg/mL H pg/m L (0-450) Total Protein 5.8 g/dL L g/dL (6.6-8.7) Albumin 3.5 g/dL g/dL (3.5-5.2) Globulin 2.3 g/dL g/dL (1.3-4.6) Lipase 23 U/L U/L (13-60) Procalcitonin 0.20 ng/mL ng/mL (0-0.5) SARS-CoV-2 Ag (Rap id) 10/26/21 10/26/21 10/26/21 08:34 08:34 10:50 WBC RBC Hgb Hct MCV MCH MCHC RDW Plt Count MPV Neut % (Auto) Lymph % (Auto) [place] % (Auto) Eos % (Auto) Baso % (Auto) Neut # (Auto) Lymph # (Auto) [place] # (Auto) Eos # (Auto) Baso # (Auto) Nucleated RBC % (a uto) Nucleated RBCs # Specimen Type Sample Site ABG pH ABG pCO2 ABG pO2 ABG HCO3 ABG O2 Saturation ABG Base Excess Josh Test A-a O2 Gradient Hematocrit Hgb O2 Saturation Carboxyhemoglobin Methemoglobin Total Hemoglobin Sodium Potassium Glucose Ionized Calcium O2 Delivery Device FiO2 PEEP Director Of [employer] ID Chloride Carbon Dioxide Anion Gap BUN Creatinine GFR Calculation Calculated Osmolal ity Lactic Acid 3.3 mmol/L H mmol /L (0.5-2.2) Lactic Acid (Sepsi s) 1.4 mmol/L mmol/L (0.5-2.2) Calcium Magnesium Total Bilirubin AST ALT Alkaline Phosphata se Creatine Kinase NT-Pro-B Natriuret Pep Total Protein Albumin Globulin Lipase Procalcitonin SARS-CoV-2 Ag (Rap id) Negative (Negative) COVID Results: SARS-CoV-2 Antigen (Rapid) Negative (Negative) 10/26/21 08:34 10/26/21 Nasal/Oral Coronavirus 2019 PCR Not detected 12/21/20 10:13 12/21/20 Discharge Plan Discharge Patient Disposition: Admitted As Inpatient Admit Provider: Slick Ibarra Clinical Impression: Acute and chronic respiratory failure with hypoxia, Pneumonia, COPD with exacerbation, Atrial fibrillation, COPD (chronic obstructive pulmonary disease) Condition: Stable Coding Level of Care Code ED [place] Vessel Pilot for Chg Fwd Exam Comprehensive
--- NOTE | 2021-10-26 08:26 | XR_ITS ---
WS: [id number] XR chest 1V portable [id number] REASON FOR EXAM: dyspnea/cough FINDINGS: Compared to the examination of 08/24/2021, linear opacities are again seen in both lower lungs with b ilateral pleural effusions. There are new infiltrative changes in the periphery of the right and more notably the left mid lungs. No other significant interval change or new finding. XR/XR chest 1V portable [id number] IMPRESSION: New infiltrative changes, predominating on the left, since previous examination .
[2021-10-26 08:42] LABS: ABG PCO2 44.9 mmHg (35-45); ABG PH Result 7.44 (7.35-7.45); Arterial Blood Gas Hematocrit 41.6 % (42-52); Base Excess ABG 5.8 mmol/L (-2.0-2.0); Blood Gas Allen Test Pos; Blood Gas Sample Site Radial, right; Blood Gas Sample Type Arterial; Carboxyhemoglobin 0.8 %THgb (0.4-20.1); HCO3 ABG 30.8 mmol/L (22-26); HGB O2 Sat 98.1 % (95-100); Ionized Calcium Level - ABG 1.2 mmol/L (1.1-1.4); Methemoglobin 0.7 % (0.4-1.5); Oxygen Saturation ABG 99.5; Potassium Level - ABG 3.4 mmol/L (3.5-5.0); Total Hemoglobin 13.6 g/dL (14-18)
[2021-10-26 08:43] LABS: Alveolar-Arterial Oxygen Gradi 58.6 mmHg (5-10); Blood Gas Operator Identificat RC; Oxygen Device BIPAP
[2021-10-26 08:46] LABS: Basophils % 0.2 %; Hematocrit 38.6 % (42.0-52.0); Hemoglobin 12.5 g/dL (11.7-16.6); Lymphocytes # 1.3 10^3/uL (0.8-4.8); Lymphocytes % 15.1 %; Mean Corpuscular HGB Conc 32.4 g/dL (30.0-36.0); Mean Corpuscular Hemoglobin 30.3 pg (28.0-34.0); Mean Corpuscular Volume 93.7 fl (80-94); Mean Platelet Volume 11.2 fL (7.4-10.4); Monocytes # 0.7 10^3/uL (0.2-0.9); Monocytes % 8.6 %; Neutrophils # 6.52 10^3/uL (1.8-7.7); Neutrophils % 75.5 %; Nucleated Red Blood Cells % 0 %; Platelet Count 167 10^3/cmm (130-400); Red Blood Count 4.12 10^6/uL (4.1-5.3); Red Cell Distribution Width 13.8 % (12.1-15.1); White Blood Count 8.6 10^3/uL (4.0-10.0)
--- NOTE | 2021-10-26 08:48 | CT_ITS ---
WS: [id number] CTA OF THE CHEST WITH PULMONARY EMBOLISM PROTOCOL TECHNIQUE: High-resolution contrast enhanced CTA of the chest with coronal and sagittal reformatted i mages with pulmonary embolism protocol. MIP images are also reviewed. CLINICAL INFORMATION: hypoxia COMPARISON: January 20, 2020 DLP: 618.[address] scans at [facility] use at least one of these dose optimization techniques: automated e xposure control; mA and/or kV adjustment per patient size (includes targeted exams where dose is matc hed to clinical indication); or iterative reconstruction. FINDINGS: Proximal main pulmonary arteries are normal. Normal segmental and subsegmental pulmonary arteries. No evidence of pulmonary embolus Tiny left pleural effusion. Left lower lobe atelectasis. Patchy micronodular infiltrates in the left upper lobe and left lower lobe. Additional similar-appearing infiltrates in the right lower lobe and right upper lobe. Recommend correlation for pneumonia. 12 mm right thyroid nodule. Sternotomy. Vascular calcification including coronary. Prior CABG. Enlarged anterior mediastinal lymph nodes nons pecific but likely reactive. Adrenal glands are normal. Cholelithiasis. Small esophageal hiatal hernia. Hypertrophic changes thora cic spine with ankylosis. CT/CT angio chest PE protcl [id number] IMPRESSION: 1. No evidence of pulmonary embolus. 2. Patchy micronodular infiltrates within both lungs worse in the left upper l obe and left lower lobe. Recommend correlation for pneumonia. 3. Small left pleural effusion with subsegmental atelectasis. 4. A few enlarged anterior mediastinal lymph nodes nonspecific but likely reac tive. 5. Cholelithiasis. 6. Small esophageal hiatal hernia.
[2021-10-26 09:07] LABS: Lactic Sepsis W/Reflex 3.3 mmol/L (0.5-2.2)
[2021-10-26 09:16] LABS: NT Pro B Type Natriuretic Pept 2912 pg/mL (0-450)
[2021-10-26 09:28] LABS: Alanine Aminotransferase 15 U/L (0-41); Albumin Level 3.5 g/dL (3.5-5.2); Alkaline Phosphatase 103 IU/L (40-130); Anion Gap 23.7 (5-19); Aspartate Amino Transferase 23 U/L (0-40); Blood Urea Nitrogen 22 mg/dL (8-23); Calcium 9.1 mg/dL (8.5-10.5); Carbon Dioxide 24 mmol/L (22-29); Chloride 93 mmol/L (98-107); Creatine Phosphokinase 70 U/L (39-308); Creatinine Clr Calc Pharmacy 60.1942; Globulin 2.3 g/dL (1.3-4.6); Glucose 84 mg/dL (65-115); Lipase 23 U/L (13-60); Magnesium 1.6 mg/dL (1.7-2.3); Osmolality Calculated 287 mOsm/kg (285-295); Potassium 3.7 mmol/L (3.5-5.1); Sodium 137 mmol/L (136-145); Total Bilirubin 1.3 mg/dL (0.15-1.2); Total Protein 5.8 g/dL (6.6-8.7)
[2021-10-26 09:29] LABS: SARS Covid-2 Antigen Negative (Negative)
[2021-10-26] MEDS: dexamethasone 10 mg/mL INJ IVP (09:43)
[2021-10-26] MEDS: iohexol 350 mg/mL 100 mL Btl IV (09:59)
--- NOTE | 2021-10-26 10:23 | PC.PHAR ---
pt states he takes care of his own medications-pt states he takes the medications entered-pt states he has been taking 60mg qam of lasix ext med history shows last filled 10/04/21 90d/s for 40mg daily-pt states he takes nifedipine 30mg qpm ext med history shows last filled 09/21/21 30d/s for 30mg bid-pt states he no longer takes plavix ext med history shows last filled 03/06/21 90d/s-notes are made in the pharmacy comments
[2021-10-26 10:30] LABS: Reflex Lactate Order REFLEX LACTIC ORDERD
[2021-10-26 11:12] LABS: Lactic Acid level (Lactate) 1.4 mmol/L (0.5-2.2)
[2021-10-26] MEDS: piperacillin-tazobactam 3.375 GM in sodium chloride 0.9% (plus) 50 ML IV ×2 (11:17→18:06)
[2021-10-26] MEDS: levofloxacin-dextrose 5 % 750 MG/150 ML PREMIX 100 MG IV (11:17)
--- NOTE | 2021-10-26 11:20 | P.HP_ITS ---
Providers/Chief Complaint Primary Care Provider: Kalin Jordan DO Chief Complaint: SOB History of Present Illness Kev Poe Sr is a 76 year old male who presents to the hospital with severe shortness of breath. Symptoms have been going on at least the last 2 to 3 days. No fever. He has been wheezing more and has had a cough. The cough has been nonproductive. Recently got his Covid booster and he is worried that may have contributed. No exposure to anybody with Covid. Typically uses about 8 L of oxygen chronically for his COPD/fibrotic lung disease. Was coughing so hard 2 days ago he vomited a small amount. Has BiPAP he is supposed to use during the day as needed but he reports he has not used it much lately. Review of Systems General: Reports: 10 or more systems reviewed and unremarkable except in HPI and below Const: Reports: fatigue; Denies: fever(s) or chills Eyes: Denies: change in vision ENMT: Denies: throat pain Card: Denies: chest pain Resp: Reports: dyspnea, non-productive cough and wheezing GI: Reports: vomiting (Posttussive); Denies: abdominal pain : Denies: flank pain Musc: Denies: neck pain Skin/Breast: Denies: rash Neuro: Denies: headache(s) Psych: Denies: anxiety or depression Endo: Denies: polyuria Zeb/Lymph: Denies: easy bruising All/Imm: Denies: urticaria Medications/Allergies Home Medications Medication Instructions Recorded Confirmed Last Taken Type albuterol sulfate 2.5 mg INHALATION Q4H PRN 12/16/19 10/26/21 05/05/21 History atorvastatin 20 mg tablet 20 mg PO DAILY 12/16/19 10/26/21 05/04/21 History metoprolol succinate 50 mg 50 mg PO QAM 12/16/19 10/26/21 05/05/21 History tablet,extended release 24 hr olmesartan 40 mg tablet 40 mg PO DAILY 03/17/20 10/26/21 05/05/21 History nitroglycerin 0.4 mg sublingual 0.4 mg SUBLINGUAL Q5M PRN #30 tab 11/23/20 10/26/21 12/08/20 Rx tablet Flonase Allergy Relief 2 spray INTRANASAL DAILY PRN 10/26/21 10/26/21 Unknown History Perforomist 20 mcg INHALATION Q12H 10/26/21 10/26/21 Unknown History Ventolin HFA 2 puff INHALATION Q6H PRN 10/26/21 10/26/21 Unknown History Yupelri 175 mcg INHALATION DAILY 10/26/21 10/26/21 Unknown History budesonide 0.5 mg INHALATION BID 10/26/21 10/26/21 Unknown History cholecalciferol (vitamin D3) 25 mcg PO DAILY 10/26/21 10/26/21 Unknown History [Vitamin D3] furosemide [Lasix] 60 mg PO QAM 10/26/21 10/26/21 Unknown History nifedipine 30 mg PO QPM 10/26/21 10/26/21 Unknown History prednisone 5 mg PO QPM 10/26/21 10/26/21 Unknown History rivaroxaban [Xarelto] 20 mg PO QPM 10/26/21 10/26/21 10/25/21 History Allergies Allergy/AdvReac Type Severity Reaction Status Date / Time No Known Allergies Allergy Verified 10/26/21 09:56 PFSH Acute PFSH: Medical History BPH loc w urin obs/LUTS CAD (coronary artery disease) COPD (chronic obstructive pulmonary disease) Essential (primary) hypertension Hyperlipidemia Pleural thickening Urethral stricture Urolithiasis Ventricular bigeminy Surgical History H/O four vessel coronary artery bypass graft H/O heart surgery History of back surgery Family History Mother Diabetes Social History Quit status (tobacco): has quit using tobacco Year quit tobacco: 1981 - 2PPD x 20 Years Smoking risk assessment/counseling performed?: No Alcohol intake: never Desire information about alcohol rehabilitation?: No Counseling given: No Desire information about substance/drug rehabilitation?: No Counseling given: No Lives independently: Yes Household members: spouse Marital status: Current occupational status: retired History of recent travel: No Current gender identity: Male Vitals/I&O/Wt Last Vital Signs Temp 98.7 F 10/26/21 08:47 Pulse 108 H 10/26/21 11:06 Resp 26 H 10/26/21 11:06 BP 118/60 10/26/21 11:06 Pulse Ox 97 10/26/21 11:06 Weight last 48 hrs Weight 86.183 kg Physical Exam Narrative: EXAM NARRATIVE: General exam is a white male, with moderate increased work of breathing with elevated respiratory rate who initially was saturating from what was told me in the 70s per ambulance services. He is currently on BiPAP and saturating greater than 90%. HEENT: Atraumatic normocephalic. Oropharynx not examined as he is on BiPAP. Neck is supple no lymphadenopathy or thyromegaly Cardiovascular regular rate and rhythm without murmur Lungs diminished breath sounds bilaterally. Occasional expiratory wheeze Abdomen is soft nontender positive bowel sounds. No obvious organomegaly exam is deferred Extremities trace edema. No cyanosis or clubbing. Cap refill brisk. Skin no rash Neuro no focal deficits. Data : 10/26/21 08:34 10/26/21 08:34 Other data: ABG demonstrated a pH 7.44, PCO2 45, PO2 of 139 on 90% FiO2 by BiPAP with a PEEP of 10. Magnesium 1.6, LFTs normal BNP elevated at 2912 Urinalysis pending Covid rapid negative, PCR pending Chest x-ray left-sided infiltrate superimposed on chronic bibasilar scarring CTA chest no pulmonary embolism, micronodular infiltrates both lungs worse in the left upper and lower lobe. Small left pleural effusion and atelectasis. Cholelithiasis and small esophageal hiatal hernia. Last echocardiogram in April 2021 demonstrated severe pulmonary hypertension, EF of 45 to 50% A&P Assessment and plan (1) Acute and chronic respiratory failure with hypoxia: Significantly hypoxic in the field. Now requiring BiPAP all the time with evidence of accessory muscle use, tachypnea. Continue BiPAP currently Status: Acute (2) Pneumonia: Check MRSA PCR, sputum culture Initiate Zosyn plus Levaquin currently Status: Acute (3) COPD with exacerbation: DuoNeb every 4 hours Budesonide every 12 hours Dexamethasone given in the ER. Will start Solu-Medrol 60 mg IV every 6 hours Status: Acute (4) Atrial fibrillation: Patient with history of atrial fibrillation, on chronic anticoagulation. Check EKG Continue home medications including metoprolol Continue chronic anticoagulation Status: Acute (5) Cardiomyopathy: History of EF of 45 to 50%. Continue his Lasix. No evidence of acute exacerbation. Status: Acute Additional A&P Information Hypomagnesemia. Supplement Allow natural . Discussed with patient in great detail. He would still like aggressive care, including ICU care if needed. If there is any time to discuss things he would like to hear all of his options for continued health care. Attestations Medical Necessity Statement*: Will need greater than 2 midnight stay for treatment of pneumonia with acute on chronic hypoxic respiratory failure with IV antibiotics. Time Spent in Patient Care: Greater than 35 minutes Coding Level of Care Code Acute Field Nurse Case Manager for [facility] Fwd Diagnoses Acute and chronic respiratory failure with hypoxia J96.21 Pneumonia J18.9 COPD with exacerbation J44.1 Atrial fibrillation I48.91 Cardiomyopathy I42.9
--- NOTE | 2021-10-26 11:47 | ECG_ITS ---
[facility] Test Date: 2021-10-26 Pat Name: Kev Poe Department: Room: [facility] Gender: Male Pharmaceutical Sales: : 1945 Requested By: Silck Al Order Number: [id number] Edgar MD: Luba Wilkins M.D. Measurements Intervals [place] Rate: 105 P: [place]: QRS: -43 QRSD: 123 T: 119 QT: 369 QTc: 490 Interpretive Statements ATRIAL FIBRILLATION WITH RAPID VENTRICULAR RESPONSE WITH ABERRANT CONDUCTION OR VENTRICULAR PREMATURE COMPLEXES LEFT AXIS DEVIATION [QRS AXIS < -30] MODERATE INTRAVENTRICULAR CONDUCTION DELAY [110+ ms QRS DURATION] ST DEVIATION AND MODERATE T-WAVE ABNORMALITY, CONSIDER LATERAL ISCHEMIA [-0.1+ mV T-WAVE IN I/aVL/V5/V6] Compared to ECG 05/05/2021 15:41:50 Ventricular premature complex(es) now present Aberrant conduction of supraventricular beat(s) now present Intraventricular conduction delay now present T-wave abnormality now present Possible ischemia now present Left ventricular hypertrophy no longer present ST (T wave) deviation no longer present Electronically Signed On 10-27-2021 0:21:26 VICE PRESIDENT TAX by Luba Wilkins M.D. [id number]
[2021-10-26] MEDS: ipratropium-albuterol 3 mL Neb INHALATION ×4 (12:29→23:07)
[2021-10-26] MEDS: magnesium sulfate premix 2 GM/50 ML PIGGYBACK IV (13:23)
[2021-10-26] MEDS: rivaroxaban 10 mg Tablet 20 MG PO (18:05)
[2021-10-26] MEDS: NIFEdipine ER (24 hr) 30 mg Tablet PO (18:05)
[2021-10-26 18:23] LABS: Add Urine Microscopic? YES; Bilirubin Urine Neg (Negative); Blood Urine Trace (Negative); Glucose Urine UA Norm (Normal); Ketones Urine 1+ (Negative); Leukocyte Esterase Urine Negative (Negative); Nitrate Urine Negative (Negative); Protein Urine Neg (Negative); Specific Gravity, Urine 1.015 (1.005-1.030); Urine Appearance Clear (CLEAR); Urine Color Yellow (Yellow); Urobilinogen Urine Norm (Negative); pH Urine 5 (5-7)
[2021-10-26 18:24] LABS: Add Urine Culture? No; Bacteria Urine TRACE /hpf; Mucus Urine TRACE /hpf; RBC Urine 0-4 /hpf (0-2); Squamous Epithelial Cell Urine 0-4 /hpf (0-5); WBC Urine 0-4 /hpf (0-5)
[2021-10-26] MEDS: budesonide 0.5 mg/2 mL Neb INHALATION (19:47)
[2021-10-27] VITALS (48 sets, daily range): BP systolic 80–118; BP diastolic 43–79; PULSE 74–192; RESP 17–37; TEMP 36.1–36.4; O2SAT 86–95
[2021-10-27] MEDS: piperacillin-tazobactam 3.375 GM in sodium chloride 0.9% (plus) 50 ML IV ×3 (00:47→17:17)
--- NOTE | 2021-10-27 02:55 | ECG_ITS ---
[facility] Test Date: 2021-10-27 Pat Name: Kev Poe Department: Room: ICU01 Gender: Male Account Engineer: : 1945 Requested By: Cornelia Plaza Order Number: [id number] Edgar MD: Luba Wilkins M.D. Measurements Intervals Scott Rate: 129 P: PA: QRS: -51 QRSD: 128 T: 126 QT: 345 QTc: 506 Interpretive Statements ATRIAL FIBRILLATION WITH RAPID VENTRICULAR RESPONSE WITH ABERRANT CONDUCTION OR VENTRICULAR PREMATURE COMPLEXES LEFT AXIS DEVIATION [QRS AXIS < -30] MODERATE INTRAVENTRICULAR CONDUCTION DELAY [105+ ms QRS DURATION, 80+ ms Q/S IN V1/V2, NO Q AND 60+ ms R IN I/aVL/V5/V6] MINIMAL VOLTAGE CRITERIA FOR LVH, CONSIDER NORMAL VARIANT [MEETS CRITERIA IN ONE OF: R(aVL), S(V1), R(V5), R(V5/V6)+S(V1)] ST DEVIATION AND MODERATE T-WAVE ABNORMALITY, CONSIDER LATERAL ISCHEMIA [-0.1+ mV T-WAVE IN I/aVL/V5/V6] Compared to ECG 10/26/2021 12:01:56 No significant changes Electronically Signed On 10-27-2021 22:09:57 PHARMACY AIDE by Luba Wilkins M.D. [id number]
[2021-10-27 04:56] LABS: Basophils % 0.2 %; Hematocrit 36.1 % (42.0-52.0); Hemoglobin 11.8 g/dL (11.7-16.6); Lymphocytes # 0.2 10^3/uL (0.8-4.8); Lymphocytes % 3.2 %; Mean Corpuscular HGB Conc 32.7 g/dL (30.0-36.0); Mean Corpuscular Volume 91.9 fl (80-94); Mean Platelet Volume 11.2 fL (7.4-10.4); Monocytes # 0.3 10^3/uL (0.2-0.9); Monocytes % 5.6 %; Neutrophils # 5.33 10^3/uL (1.8-7.7); Neutrophils % 90.7 %; Nucleated Red Blood Cells % 0 %; Platelet Count 143 10^3/cmm (130-400); Red Blood Count 3.93 10^6/uL (4.1-5.3); Red Cell Distribution Width 13.6 % (12.1-15.1); White Blood Count 5.9 10^3/uL (4.0-10.0)
[2021-10-27] MEDS: metoprolol succinate ER (24 HR) 50 mg Tablet PO (05:13)
[2021-10-27] MEDS: FUROsemide 40 mg Tablet 60 MG PO (05:13)
[2021-10-27 05:16] LABS: Alanine Aminotransferase 14 U/L (0-41); Albumin Level 3.1 g/dL (3.5-5.2); Alkaline Phosphatase 85 IU/L (40-130); Anion Gap 20.3 (5-19); Aspartate Amino Transferase 21 U/L (0-40); Blood Urea Nitrogen 26 mg/dL (8-23); Calcium 9.1 mg/dL (8.5-10.5); Carbon Dioxide 26 mmol/L (22-29); Chloride 96 mmol/L (98-107); Globulin 2.1 g/dL (1.3-4.6); Glucose 163 mg/dL (65-115); Osmolality Calculated 296 mOsm/kg (285-295); Potassium 3.3 mmol/L (3.5-5.1); Sodium 139 mmol/L (136-145); Total Bilirubin 0.6 mg/dL (0.15-1.2); Total Protein 5.2 g/dL (6.6-8.7)
[2021-10-27] MEDS: ipratropium-albuterol 3 mL Neb INHALATION ×5 (07:46→23:53)
[2021-10-27] MEDS: budesonide 0.5 mg/2 mL Neb INHALATION ×2 (07:46→20:07)
[2021-10-27] MEDS: potassium chloride ER 20 mEq Tablet 40 MEQ PO ×2 (08:03→12:03)
[2021-10-27] MEDS: atorvastatin 40 mg Tablet 20 MG PO (08:03)
[2021-10-27] MEDS: losartan 50 mg Tablet 100 MG PO (08:04)
[2021-10-27] MEDS: pantoprazole DR 40 mg Tablet PO (08:04)
--- NOTE | 2021-10-27 09:03 | PM.PN ---
Subjective Subjective: Interval history: Kev reports he feels better than he did when he arrived to the hospital. Still wheezing a little bit. Hopeful to get back on the 9 L per facemask he usually uses at home. Medications: Reviewed: Yes Vitals/I&O/Wt Last Vital Signs Temp 97.6 F 10/26/21 14:45 Pulse 94 10/27/21 07:46 Resp 20 H 10/27/21 07:46 BP 110/59 10/27/21 08:04 Pulse Ox 90 10/27/21 07:46 10/26/21 10/27/21 10/27/21 22:59 06:59 14:59 Intake Total 290 / 490 100 / 590 Output Total 300 / 300 500 / 800 Balance -10 / 190 -400 / -210 Weight last 48 hrs Weight 76.204 kg Weight 86.183 kg Physical Exam Narrative: EXAM NARRATIVE: General exam is a white male, mild increased work of breathing improved from yesterday Neck is supple no lymphadenopathy or thyromegaly Cardiovascular regular rate and rhythm without murmur Lungs diminished breath sounds bilaterally. Occasional expiratory wheeze Abdomen is soft nontender positive bowel sounds. No obvious organomegaly Extremities trace edema. No cyanosis or clubbing. Cap refill brisk. Data : 10/27/21 04:46 10/27/21 04:46 Micro: Microbiology 10/26/21 08:34 Blood Culture - Preliminary Blood SPECIMEN COLLECTED 10/26/21 08:34 Blood Culture - Preliminary Blood SPECIMEN COLLECTED A&P Assessment and plan (1) Acute and chronic respiratory failure with hypoxia: Significantly hypoxic in the field. Now requiring BiPAP all the time with evidence of accessory muscle use, tachypnea. He is now on a facemask. I encouraged him to wear the BiPAP as needed during the day and always at night. He has BiPAP at home. Status: Acute (2) Pneumonia: Awaiting MRSA PCR and sputum culture Continue Zosyn plus Levaquin currently Rapid Covid negative. PCR pending. Influenza pending. Status: Acute (3) COPD with exacerbation: Continue DuoNeb every 4 hours Continue budesonide every 12 hours Decrease Solu-Medrol to every 12 hours Status: Acute (4) Atrial fibrillation: Patient with history of atrial fibrillation, on chronic anticoagulation. Rate currently controlled Continue home medications including metoprolol Continue chronic anticoagulation Status: Acute (5) Cardiomyopathy: History of EF of 45 to 50%. Continue his Lasix. No evidence of acute exacerbation. Status: Acute Additional A&P Information Hypomagnesemia. Supplemented Mild hypokalemia, supplement Allow natural . Discussed with patient in great detail. He would still like aggressive care, including ICU care if needed. If there is any time to discuss things he would like to hear all of his options for continued health care. He understands the severity of his chronic illness, and would entertain the possibility of a palliative care consult. We will enter. Dr. Stein notified. Attestations Medical Necessity Statement*: Needs continued hospital stay for IV antibiotics secondary to pneumonia. Coding Level of Care Code Acute Import Export Clerk for [facility] Diagnoses Acute and chronic respiratory failure with hypoxia J96.21 Pneumonia J18.9 COPD with exacerbation J44.1 Atrial fibrillation I48.91 Cardiomyopathy I42.9
--- NOTE | 2021-10-27 09:30 | PC.CHAP ---
Pastoral Care Encounter/Spiritual Assessment Type of Contact [] Declined transcripter visit [] Patient/Family/Request visit [] Outpatient visit [] Follow-up visit [] Physician referral [] Code/Alert [x] Routine visit [] Staff referral [] Actively dying [] Patient sleeping [] Family support [] [] Out of room [] Palliative care [] [] Receiving care in room [] Pre-surgical visit [] Trauma [] Long length of stay [x] ICU visit [x] Other: isolated Relational/Emotional Strength [] Patient feels connected with others/family/visitors/staff [] Distress [] Loneliness/isolation [] Abandonment Spirituality of Patient [] Person of Malathi [] Attends Sabianism of their Malathi [] Believes in Prayer [] Reads Bible or Religion materials [] There are Spiritual issues to be addressed [facility] Interventions [x] Prayer [] Active listening [] Non-anxious presence [] Spiritual/emotional support [] Crisis/trauma care [] Spiritual counseling [] Bereavement support [] Provided bereavement packet [] Provided Bible/devotional materials [] Provided toy/stuffed animal, coloring book to patient or family member [] Provided Communion [] Anointing/Speculator [] Salvation x] Completed spiritual assessment [] Other: Impact on Illness or Injury [] Angry [] Fearful [] Anxious [] Often cries [] Exhaustion [] Unable to work [] Unable to attend judaism [] Unable to walk/stand [] Unable to read [] Unable to drive [] Unable to eat/drink [] Unable to sleep [] Unable to be with family [] Patient intubated [] Other: Summary Time spent with patient
--- NOTE | 2021-10-27 10:58 | PC.NURSE ---
Patient up to chair. Rounded with Dr. Ibarra. Discussed heart rate overnight. Levaquin rescheduled because it is incompatible with Zosyn. Doctor notified.
[2021-10-27] MEDS: levofloxacin-dextrose 5 % 750 MG/150 ML PREMIX 100 MG IV (12:43)
[2021-10-27 14:19] LABS: Coronavirus Test Green County Not Detected
[2021-10-27] MEDS: digoxin 250 mcg/ml INJ 2 mL 500 MCG IVP (14:26)
[2021-10-27] MEDS: NIFEdipine ER (24 hr) 30 mg Tablet PO (17:18)
[2021-10-27] MEDS: rivaroxaban 10 mg Tablet 20 MG PO (17:18)
--- NOTE | 2021-10-27 19:02 | PC.NURSE ---
Shift Note Frequent safety and comfort rounds continue. Orders and/or nursing care completed as indicated. Patient monitored for response to intervention and treatment(s). Education provided includes new results, orders, care plan, and medications. Patient verbalized understanding. Patient in A fib with RVR whole day. Patient heart rate was tacky the whole day. Around 1420 Dr. Ibarra was updated with patients low blood pressure and tachycardia. Dr. Ibarra stated that he will update medication doses. Patient is asymptomatic with the tachycardia. Patient up to chair the whole day. Patient family called and updated today.
[2021-10-27] MEDS: digoxin 250 mcg/ml INJ 2 mL IVP (19:54)
--- NOTE | 2021-10-27 21:38 | PC.NURSE ---
Up to chair Upon patient assessment, patient watching tv in chair. Stated wish to lay back in bed, so patient transferred from chair to bed with 1 assist. Patient tolerated activity well and all vital signs stable.
[2021-10-28] VITALS (34 sets, daily range): BP systolic 97–124; BP diastolic 55–70; PULSE 68–102; RESP 10–34; TEMP 36.1–36.6; O2SAT 88–95; BMI 25.0
[2021-10-28] MEDS: piperacillin-tazobactam 3.375 GM in sodium chloride 0.9% (plus) 50 ML IV ×3 (00:17→17:53)
[2021-10-28] MEDS: ipratropium-albuterol 3 mL Neb INHALATION ×6 (03:06→23:15)
[2021-10-28 04:49] LABS: Blood Urea Nitrogen 38 mg/dL (8-23); Calcium 9.3 mg/dL (8.5-10.5); Carbon Dioxide 28 mmol/L (22-29); Chloride 101 mmol/L (98-107); Glucose 143 mg/dL (65-115); Osmolality Calculated 310 mOsm/kg (285-295); Sodium 144 mmol/L (136-145)
[2021-10-28] MEDS: FUROsemide 40 mg Tablet 60 MG PO (05:21)
[2021-10-28] MEDS: metoprolol succinate ER (24 HR) 50 mg Tablet PO (05:22)
--- NOTE | 2021-10-28 06:52 | PC.NURSE ---
Shift Note Frequent safety and comfort rounds continue. Orders and/or nursing care completed as indicated. Patient remained on 11 L HF oxymask all night with oxygen saturation staying in the low 90s, heart rhythm afib. Patient rested well for parts of the night, all stated needs taken care of at time of request. Patient monitored for response to intervention and treatment(s). Education provided includes SCD use, treatment goals, activity, and infection prevention. Patient and/or community engagement representative verbalized understanding. Will continue to monitor.
--- NOTE | 2021-10-28 09:18 | P.PN_ITS ---
Subjective Subjective: Interval history: Kev feels short of breath today. He doesn't feel like he is much better than yesterday. He is willing to consider rehabilitation services. He is already talked to discharge planning about this. He denies any chest discomfort. He is coughing, but cough is nonproductive. Medications: Reviewed: Yes Vitals/I&O/Wt Last Vital Signs Temp 97.2 F L 10/28/21 08:00 Pulse 99 10/28/21 08:00 Resp 12 10/28/21 08:00 BP 116/68 10/28/21 08:00 Pulse Ox 90 10/28/21 08:00 10/27/21 10/28/21 10/28/21 22:59 06:59 14:59 Intake Total 800 / 968 410 / 1378 120 / 120 Output Total 260 / 860 Balance 800 / 368 150 / 518 120 / 120 Weight last 48 hrs Weight 76.975 kg Weight 76.204 kg Physical Exam Narrative: EXAM NARRATIVE: General exam is a white male, at least mild to moderate respiratory distress with tachypnea. Able to complete 3-5 word se ntences. Neck is supple no lymphadenopathy or thyromegaly Cardiovascular irregular, irregular with a rate of approximately 100 Lungs diminished breath sounds bilaterally. Occasional expiratory wheeze Abdomen is soft nontender positive bowel sounds. No obvious organomegaly Extremities trace edema. No cyanosis or clubbing. Cap refill brisk. Data : 10/27/21 04:46 10/28/21 03:12 Micro: Microbiology 10/26/21 08:34 Blood Culture - Preliminary Blood NEGATIVE TO DATE 10/26/21 08:34 Blood Culture - Preliminary Blood NEGATIVE TO DATE 10/26/21 17:10 MRSA Culture - Final Nose A&P Assessment and plan (1) Acute and chronic respiratory failure with hypoxia: Now on facemask, but I encouraged him to wear his BiPAP during the day. This is what he was instructed to do at home before. He will also need to wear this at night which she did not last night. I discussed with nurse as well. He would like rehabilitation for his overall weakness and shortness of breath. Physical therapy has been consulted. Status: Acute (2) Pneumonia: Awaiting sputum culture MRSA PCR negative Continue Zosyn plus Levaquin currently Rapid Covid negative. Covid PCR negative. Influenza pending. Repeat chest x-ray today to follow-up pneumonia. Status: Acute (3) COPD with exacerbation: Continue DuoNeb every 4 hours Continue budesonide every 12 hours Change Solu-Medrol to every 24 hours Status: Acute (4) Atrial fibrillation: Patient with history of atrial fibrillation, on chronic anticoagulation. Rate has drifted up. He was given several doses of digoxin yesterday with good response. Other rate medications were not increased secondary to him being somewhat hypotensive. Will add diltiazem 30 mg every 6 hours today. Discontinue his nifedipine. Continue his metoprolol. This may need to be increased Continue home medications including metoprolol Continue chronic anticoagulation Status: Acute (5) Cardiomyopathy: History of EF of 45 to 50%. Continue his Lasix. No evidence of acute exacerbation. Status: Acute Additional A&P Information Hypomagnesemia. Supplemented Mild hypokalemia, supplemented Acute kidney injury. Hold diuretics and potassium currently. Monitor blood pressure closely. Allow natural . Discussed with patient in great detail. He would still like aggressive care, including ICU care if needed. If there is any time to discuss things he would like to hear all of his options for continued health care. He understands the severity of his chronic illness, and would entertain the possibility of a palliative care consult. We will enter. Dr. Stein notified. Attestations Medical Necessity Statement*: Needs continued hospital stay for IV antibiotics related to pneumonia. Coding Level of Care Code Acute International Freight Forwarder for [facility] [place] Diagnoses Acute and chronic respiratory failure with hypoxia J96.21 Pneumonia J18.9 COPD with exacerbation J44.1 Atrial fibrillation I48.91 Cardiomyopathy I42.9
--- NOTE | 2021-10-28 09:28 | XR_ITS ---
WS: [id number] XR chest 1V portable [id number] REASON FOR EXAM: follow up pneumonia FINDINGS: The chest is essentially unchanged compared to 10/26/2021. Blunting of both costophrenic angles. Reticular infiltrative changes in the lower lung person and in the periphery of the left mid lung fie ld. No new findings. XR/XR chest 1V portable [id number] IMPRESSION: Stable abnormal chest.
[2021-10-28] MEDS: budesonide 0.5 mg/2 mL Neb INHALATION ×2 (10:06→19:49)
[2021-10-28] MEDS: atorvastatin 40 mg Tablet 20 MG PO (11:53)
[2021-10-28] MEDS: dilTIAZem 30 mg Tablet PO ×3 (11:53→19:33)
[2021-10-28] MEDS: pantoprazole DR 40 mg Tablet PO (11:53)
[2021-10-28] MEDS: rivaroxaban 10 mg Tablet 15 MG PO (17:53)
[2021-10-28] MEDS: guaiFENesin 600 mg Tablet PO (17:53)
--- NOTE | 2021-10-28 19:00 | PC.NURSE ---
To Bed Patient transferred from chair to bed with minimal assistance. All vitals stable, patient tolerated activity well.
--- NOTE | 2021-10-28 22:40 | PC.NURSE ---
Hygiene Patient stated wish for bed bath. Bathing completed with moderate assistance, slight decrease in oxygen saturation noted during activity to 88%. All other vitals stable and oxygen saturation quickly recovered to patient's usual 91%. Additionally, new gown and brief put on, and lotion applied to dry skin. Oral care completed by patient, linen change refused.
[2021-10-29] VITALS (47 sets, daily range): BP systolic 105–137; BP diastolic 52–76; PULSE 55–103; RESP 7–51; TEMP 36.1–36.3; O2SAT 88–97; BMI 24.2
--- NOTE | 2021-10-29 00:55 | PC.NURSE ---
IV Attempts Two attempts made by this nurse to obtain IV access unsuccessful. Right AC 20 gauge IV access obtained via ultrasound by charge nurse. Patient tolerated procedures well.
[2021-10-29] MEDS: piperacillin-tazobactam 3.375 GM in sodium chloride 0.9% (plus) 50 ML IV ×3 (01:03→17:10)
[2021-10-29] MEDS: dilTIAZem 30 mg Tablet PO (01:51)
[2021-10-29] MEDS: ipratropium-albuterol 3 mL Neb INHALATION ×6 (03:45→23:40)
[2021-10-29 05:23] LABS: Basophils % 0.1 %; Hematocrit 38.1 % (42.0-52.0); Hemoglobin 12.2 g/dL (11.7-16.6); Lymphocytes # 0.5 10^3/uL (0.8-4.8); Lymphocytes % 3.1 %; Mean Corpuscular Hemoglobin 30.2 pg (28.0-34.0); Mean Corpuscular Volume 94.3 fl (80-94); Mean Platelet Volume 11.3 fL (7.4-10.4); Monocytes # 0.4 10^3/uL (0.2-0.9); Monocytes % 2.9 %; Neutrophils # 13.71 10^3/uL (1.8-7.7); Nucleated Red Blood Cells % 0 %; Platelet Count 178 10^3/cmm (130-400); Red Blood Count 4.04 10^6/uL (4.1-5.3); Red Cell Distribution Width 13.8 % (12.1-15.1); White Blood Count 14.8 10^3/uL (4.0-10.0)
[2021-10-29 05:32] LABS: Alanine Aminotransferase 16 U/L (0-41); Albumin Level 3.1 g/dL (3.5-5.2); Alkaline Phosphatase 73 IU/L (40-130); Anion Gap 15.8 (5-19); Aspartate Amino Transferase 20 U/L (0-40); Blood Urea Nitrogen 42 mg/dL (8-23); Calcium 9.2 mg/dL (8.5-10.5); Carbon Dioxide 29 mmol/L (22-29); Chloride 100 mmol/L (98-107); Globulin 2.1 g/dL (1.3-4.6); Glucose 125 mg/dL (65-115); Magnesium 1.9 mg/dL (1.7-2.3); Osmolality Calculated 304 mOsm/kg (285-295); Potassium 3.8 mmol/L (3.5-5.1); Sodium 141 mmol/L (136-145); Total Bilirubin 0.5 mg/dL (0.15-1.2); Total Protein 5.2 g/dL (6.6-8.7)
[2021-10-29] MEDS: metoprolol succinate ER (24 HR) 50 mg Tablet PO (05:36)
--- NOTE | 2021-10-29 07:33 | PM.PN ---
Subjective Subjective: Interval history: Kev reports he feels a little bit better this morning. A little bit more energy. Confirms plan that he would like skilled care. Medications: Reviewed: Yes Vitals/I&O/Wt Last Vital Signs Temp 97.3 F L 10/29/21 04:00 Pulse 73 10/29/21 06:00 Resp 18 10/29/21 06:00 BP 120/58 10/29/21 06:00 Pulse Ox 95 10/29/21 06:00 10/28/21 10/29/21 10/29/21 22:59 06:59 14:59 Intake Total 340 / 580 290 / 870 Output Total 475 / 775 375 / 1150 Balance -135 / -195 -85 / -280 Weight last 48 hrs Weight 74.48 kg Weight 76.975 kg Physical Exam Narrative: EXAM NARRATIVE: General exam is a white male, mild respiratory distress today. Does appear improved from yesterday. Neck is supple no lymphadenopathy or thyromegaly Cardiovascular irregular, irregular with a rate of approximately 100 Lungs diminished breath sounds bilaterally. No wheezes Abdomen is soft nontender positive bowel sounds. No obvious organomegaly Extremities trace edema. No cyanosis or clubbing. Cap refill brisk. Data : 10/29/21 04:19 10/29/21 04:19 A&P Assessment and plan (1) Acute and chronic respiratory failure with hypoxia: Now on facemask, but I encouraged him to wear his BiPAP during the day. This is what he was instructed to do at home before. He will also need to wear this at night which she did not last night. I discussed with nurse as well. He would like rehabilitation for his overall weakness and shortness of breath. Physical therapy has been consulted. Unfortunately BiPAP was not used last night. Encouraged it today. I think he will need to use this intermittently at the nursing facility. Status: Acute (2) Pneumonia: They have not been able to collect a sputum MRSA PCR negative Continue Zosyn plus Levaquin currently Rapid Covid negative. Covid PCR negative. Influenza pending. Repeat chest x-ray today to follow-up pneumonia. Status: Acute (3) COPD with exacerbation: Continue DuoNeb every 4 hours Continue budesonide every 12 hours Continue Solu-Medrol Status: Acute (4) Atrial fibrillation: Patient with history of atrial fibrillation, on chronic anticoagulation. Rate has drifted up. He was given several doses of digoxin yesterday with good response. Other rate medications were not increased secondary to him being somewhat hypotensive. He responded well to the addition of diltiazem. Change to extended release 120 mg daily Continue home medications including metoprolol Continue chronic anticoagulation Status: Acute (5) Cardiomyopathy: History of EF of 45 to 50%. Continue his Lasix. No evidence of acute exacerbation. Status: Acute Additional A&P Information Hypomagnesemia. Supplemented Mild hypokalemia, supplemented and normal today Acute kidney injury. Hold diuretics and potassium currently. Creatinine improving. Likely will need reinitiation of diuretic tomorrow. Allow natural . Discussed with patient in great detail. He would still like aggressive care, including ICU care if needed. If there is any time to discuss things he would like to hear all of his options for continued health care. Palliative care consult has been entered. Attestations Medical Necessity Statement*: Needs continued hospital stay for IV antibiotics related to pneumonia Coding Level of Care Code Acute Bill Collector for Pam[facility] Diagnoses Acute and chronic respiratory failure with hypoxia J96.21 Pneumonia J18.9 COPD with exacerbation J44.1 Atrial fibrillation I48.91 Cardiomyopathy I42.9
[2021-10-29] MEDS: budesonide 0.5 mg/2 mL Neb INHALATION ×2 (07:43→19:39)
[2021-10-29] MEDS: atorvastatin 40 mg Tablet 20 MG PO (08:00)
[2021-10-29] MEDS: dilTIAZem ER (24HR) 120 mg Capsule PO (08:01)
[2021-10-29] MEDS: guaiFENesin 600 mg Tablet PO ×2 (08:01→17:09)
[2021-10-29] MEDS: pantoprazole DR 40 mg Tablet PO (08:01)
[2021-10-29] MEDS: levofloxacin-dextrose 5 % 750 MG/150 ML PREMIX 100 MG IV (11:10)
--- NOTE | 2021-10-29 11:38 | PC.SOCIAL ---
IMM update IMM updated with patient. Verbalized an understanding. Copy Pg 2 provided. Initialled, dated, timed, and placed in chart.
[2021-10-29] MEDS: rivaroxaban 10 mg Tablet 15 MG PO (17:10)
[2021-10-30] VITALS (28 sets, daily range): BP systolic 106–136; BP diastolic 55–74; PULSE 55–93; RESP 5–34; TEMP 36.2–36.9; O2SAT 91–96
[2021-10-30] MEDS: piperacillin-tazobactam 3.375 GM in sodium chloride 0.9% (plus) 50 ML IV ×3 (00:44→17:21)
[2021-10-30] MEDS: ipratropium-albuterol 3 mL Neb INHALATION ×6 (02:58→23:07)
[2021-10-30 03:27] LABS: Basophils % 0.1 %; Hematocrit 36.8 % (42.0-52.0); Hemoglobin 11.6 g/dL (11.7-16.6); Lymphocytes # 0.3 10^3/uL (0.8-4.8); Lymphocytes % 2.6 %; Mean Corpuscular HGB Conc 31.5 g/dL (30.0-36.0); Mean Corpuscular Hemoglobin 29.6 pg (28.0-34.0); Mean Corpuscular Volume 93.9 fl (80-94); Mean Platelet Volume 11.3 fL (7.4-10.4); Monocytes # 0.3 10^3/uL (0.2-0.9); Monocytes % 2.6 %; Neutrophils # 11.73 10^3/uL (1.8-7.7); Neutrophils % 93.8 %; Nucleated Red Blood Cells % 0 %; Platelet Count 180 10^3/cmm (130-400); Red Blood Count 3.92 10^6/uL (4.1-5.3); Red Cell Distribution Width 13.9 % (12.1-15.1); White Blood Count 12.5 10^3/uL (4.0-10.0)
[2021-10-30 03:49] LABS: Blood Urea Nitrogen 47 mg/dL (8-23); Calcium 9.2 mg/dL (8.5-10.5); Carbon Dioxide 24 mmol/L (22-29); Chloride 99 mmol/L (98-107); Glucose 182 mg/dL (65-115); Osmolality Calculated 303 mOsm/kg (285-295); Sodium 138 mmol/L (136-145)
[2021-10-30 03:52] LABS: Anion Gap 19.4 (5-19); Potassium 4.4 mmol/L (3.5-5.1)
[2021-10-30] MEDS: metoprolol succinate ER (24 HR) 50 mg Tablet PO (05:53)
[2021-10-30] MEDS: budesonide 0.5 mg/2 mL Neb INHALATION ×2 (07:39→19:58)
[2021-10-30] MEDS: pantoprazole DR 40 mg Tablet PO (07:52)
[2021-10-30] MEDS: atorvastatin 40 mg Tablet 20 MG PO (07:52)
[2021-10-30] MEDS: dilTIAZem ER (24HR) 120 mg Capsule PO (07:52)
[2021-10-30] MEDS: guaiFENesin 600 mg Tablet PO ×2 (07:52→17:21)
--- NOTE | 2021-10-30 15:46 | P.CONIM_ITS ---
Providers/Reason For Consult Consulting Physician/Specialty*: Morro Stein DO; Palliative Care Reason for Consult*: Discussion of wishes as disease progresses Attending Physician: Slick Ibarra MD Primary Care Provider: Kalin Jordan DO History of Present Illness History of Present Illness Kev Poe Sr is a 76 year old male Who presents to the hospital with severe shortness of breath. His symptoms lasted 2 to 3 days prior to admit. He has been wheezing more and had a cough. The cough has been nonproductive. The patient typically uses 8 to 11 L of oxygen at home for COPD/fibrotic lung disease. At time of admission he denied use of his prescribed BiPAP. While patient has been hospitalized he has maintained his oxygen level requirement around 9 to 10 L. He has had asymptomatic tachycardia that has been treated with beta-blockers and calcium channel blockers as well as digoxin. Patient's attending physician has discussed with patient his wishes in if a catastrophic event were to occur. The patient related that he would not wish to be placed on a ventilator, and thus the patient's CODE STATUS was changed to allow natural . Review of Systems Const: Reports: change in weight (recent weight loss without trying); Denies: fever(s) or chills Eyes: Denies: change in vision or blurry vision ENMT: Denies: throat pain or nasal congestion Card: Denies: chest pain or palpitations Resp: Reports: dyspnea and wheezing GI: Denies: abdominal pain, nausea, vomiting or change in bowel habits : Denies: flank pain or difficulty urinating Musc: Denies: neck pain or back pain Skin/Breast: Denies: rash or pruritus Neuro: Denies: headache(s) or difficulty walking Psych: Reports: anxiety and panic attacks (due to breathlessness); Denies: depression Endo: Denies: polyuria or polydipsia Zeb/Lymph: Denies: easy bruising or easy bleeding All/Imm: Denies: urticaria Meds/Allergies Home Medications and Allergies Home Medications Medication Instructions Recorded Confirmed Last Taken Type albuterol sulfate 2.5 mg INHALATION Q4H PRN 12/16/19 10/26/21 05/05/21 History atorvastatin 20 mg tablet 20 mg PO DAILY 12/16/19 10/26/21 05/04/21 History metoprolol succinate 50 mg 50 mg PO QAM 12/16/19 10/26/21 05/05/21 History tablet,extended release 24 hr olmesartan 40 mg tablet 40 mg PO DAILY 03/17/20 10/26/21 05/05/21 History nitroglycerin 0.4 mg sublingual 0.4 mg SUBLINGUAL Q5M PRN #30 tab 11/23/20 10/26/21 12/08/20 Rx tablet Flonase Allergy Relief 2 spray INTRANASAL DAILY PRN 10/26/21 10/26/21 Unknown History Perforomist 20 mcg INHALATION Q12H 10/26/21 10/26/21 Unknown History Ventolin HFA 2 puff INHALATION Q6H PRN 10/26/21 10/26/21 Unknown History Yupelri 175 mcg INHALATION DAILY 10/26/21 10/26/21 Unknown History budesonide 0.5 mg INHALATION BID 10/26/21 10/26/21 Unknown History cholecalciferol (vitamin D3) 25 mcg PO DAILY 10/26/21 10/26/21 Unknown History [Vitamin D3] furosemide [Lasix] 60 mg PO QAM 10/26/21 10/26/21 Unknown History nifedipine 30 mg PO QPM 10/26/21 10/26/21 Unknown History prednisone 5 mg PO QPM 10/26/21 10/26/21 Unknown History rivaroxaban [Xarelto] 20 mg PO QPM 10/26/21 10/26/21 10/25/21 History Allergies Allergy/AdvReac Type Severity Reaction Status Date / Time No Known Allergies Allergy Verified 10/26/21 09:56 Current Medications Current Medications Generic Name Dose Route Start Last Admin Trade Name Freq PRN Reason Stop Dose Admin Albuterol/Ipratropium 3 ml 10/26/21 11:15 10/30/21 15:42 Ipratropium-Albuterol 3 Ml Neb INHALATION 3 ml Q4H NAM Administration Atorvastatin Calcium 20 mg 10/27/21 09:00 10/30/21 07:52 Atorvastatin 40 Mg Tablet PO 20 mg DAILY NAM Administration Budesonide 0.5 mg 10/26/21 20:00 10/30/21 07:39 Budesonide 0.5 Mg/2 Ml Neb INHALATION 0.5 mg BID.RESPIRATORY NAM Administration Diltiazem HCl 120 mg 10/29/21 09:00 10/30/21 07:52 Diltiazem Er (24hr) 120 Mg Capsule PO 120 mg DAILY NAM Administration Guaifenesin 600 mg 10/28/21 18:00 10/30/21 07:52 Guaifenesin 600 Mg Tablet PO 600 mg BID NAM Administration Piperacillin Sod/Tazobactam 50 mls @ 12.5 mls/hr 10/26/21 17:00 10/30/21 07:52 Sod 3.375 gm/ Sodium Chloride IV 12.5 mls/hr Q8H NAM Administration Protocol Levofloxacin/Dextrose 750 mg in 150 mls @ 100 mls/hr 10/29/21 11:00 10/29/21 12:45 Levaquin-D5w IV Infused Q48H NAM Infusion Protocol Methylprednisolone Sodium Succinate 60 mg 10/29/21 08:00 10/30/21 07:51 Methylprednisolone Sod Succ 125 Mg/2 Ml Inj IVP 60 mg Q24H NAM Administration Metoprolol Succinate 50 mg 10/27/21 06:00 10/30/21 05:53 Metoprolol Succinate Er (24 Hr) 50 Mg Tablet PO 50 mg QAM NAM Administration Pantoprazole Sodium 40 mg 10/27/21 09:00 10/30/21 07:[address] 40 Mg Tablet PO 40 mg DAILY NAM Administration Rivaroxaban 15 mg 10/28/21 18:00 10/29/21 17:10 Rivaroxaban 10 Mg Tablet PO 15 mg QPM NAM Administration PFSH Acute PFSH: Medical History BPH loc w urin obs/LUTS CAD (coronary artery disease) COPD (chronic obstructive pulmonary disease) Essential (primary) hypertension Hyperlipidemia Pleural thickening Urethral stricture Urolithiasis Ventricular bigeminy Surgical History H/O four vessel coronary artery bypass graft H/O heart surgery History of back surgery Family History Mother Diabetes Social History Quit status (tobacco): has quit using tobacco Year quit tobacco: 1981 - 2PPD x 20 Years Smoking risk assessment/counseling performed?: No Alcohol intake: never Desire information about alcohol rehabilitation?: No Counseling given: No Desire information about substance/drug rehabilitation?: No Counseling given: No Lives independently: Yes Household members: spouse Marital status: Current occupational status: retired History of recent travel: No Current gender identity: Male Supplemental [facility] Information: Patient is able to sit up in a chair with minimal assistance. At home he is able to use the toilet independently. Patient uses his flip cell phone and watches TV for enjoyment. Medical DURABLE POWER OF CLAMP JIG ASSEMBLER: Mackenzie Fowler, I do not believe this paperwork is scanned into the chart yet. Advance directive: Yes but I believe this needs to be updated due to the recent CODE STATUS change. Living well: Yes. Patient Patient has lived in [place] his entire life. Patient has 2 daughters Emma Shaver a special education preschool teacher in [place] and Ginna Poe, who lives with him, works at [employer] with sporadic schedule. 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 He was . His about a year ago. He tells me that his had hospice services and he felt they were very helpful Vitals/I&O/Wt Last Vital Signs Temp 97.6 F 10/30/21 09:00 Pulse 71 10/30/21 14:00 Resp 14 10/30/21 14:00 BP 123/60 10/30/21 14:00 Pulse Ox 92 10/30/21 14:00 10/30/21 10/30/21 10/30/21 06:59 14:59 22:59 Intake Total 200 / 770 480 / 480 Output Total 600 / 800 300 / 300 Balance -400 / -30 180 / 180 Weight last 48 hrs Weight 80.467 kg Weight 74.48 kg Physical Exam Narrative: EXAM NARRATIVE: Today's consult was a telemedicine consult. Meeting attendance: Dayanna Angulo RN, myself you Extent of patient participation: Patient was completely able to participate. He was able to express his hopes and wishes for the future. He was very engaged in the conversation and able to ask questions. Topics discussed: * We reviewed patient's understanding of his disease of COPD. He stated that he understood that his condition could not get better and only worse. * When asked what was most important to him he stated I am not here to get every ounce out of life. I want to be able to take care of myself get up out of bed and go to the bathroom . * I asked Kev as you think about the future what concerns you and what situations would you want to avoid? Patient states he is worried about his friends and family. He has no expectations on his future. He states he is worried about living in pain. He specifically states he wants to be pain- free. He wants to be able to enjoy his family. And he does not want to just lay in bed he does not consider that quality of life. * Patient states his quality of life is defined by taking care of himself being able to use the bathroom on his own. * We discussed patient's preference on where he would . Patient states that ideally he would at home and be most comfortable. * We also discussed the definition of hospice and qualification criteria. I explained to Kev that at this time he meets criteria for hospice benefit. His questions were answered. He states that he would like to get stronger and then return home. He would like to receive hospice benefits when he ret urns home. * Lastly we discussed ways in which we could control his symptoms and improve his symptoms. I explained to him we would use morphine and Ativan for his breathlessness and panic attacks. We discussed the adverse effects and he is willing to have a trial of these medications once he is home. Advance directive information: I reviewed with Kev what Dr. Solorio relayed to me about their conversation. Kev confirmed that he would not want to be on the ventilator for I want the tube down my throat . We also took a conversation further discussing other deterioration or a similar situation as to this admission with low oxygen levels and breathlessness. Patient states he would rather be treated at home. Data Micro: Micro: Microbiology 10/26/21 08:34 Blood Culture - Pr eliminary Blood Coagulase negat iv staphylococc A&P Assessment and plan (1) COPD (chronic obstructive pulmonary disease): Gold class D COPD and chronic respiratory failure with hypoxia. Recommend continued use of current inhalers and daily oral prednisone once tapered. Status: Acute (2) Chronic respiratory failure with hypoxia: Status: Acute (3) Acute and chronic respiratory failure with hypoxia: Status: Acute (4) DNR (do not resuscitate) discussion: If patient were to have a catastrophic event patient does not wish to receive resuscitation efforts. Patient should have a stay DO NOT RESUSCITATE form filled out and kept at his home. Furthermore, in consultation today the patient has made his wishes clear that he would prefer to stay home and not be readmitted to the hospital. I will relay this information to his current attending physician and hopefully to his PCP, Dr. Jordan. Otherwise if the attending physician who discharges him could relay that information to Dr. Jordan -it would be appreciated. Patient wishes to receive hospice benefits upon his discharge to home from the [facility] facility. Recommend prescribing short acting morphine either tablet or sublingual as well as Ativan tablet or sublingual for breathlessness and panic attack. Patient prefers to start these drugs once he is discharged home from [facility] facility. He states he would be more comfortable trying these medications at home. Recommend discontinuation of atorvastatin. Studies of shown statins to be there most beneficial with a 5-year life expectancy. Given that he meets hospice criteria I recommend discontinuation. Status: Acute Consult Attestations Medical Necessity Statement: Pt requiring continued IV antibiotics and Iv steriods. Time Spent in Patient Care: Face to face meeting time: In: 3:00 Out: 3:40 Charting and preparin hr 20 min independent of meeting. Coding Level of Care Code Acute Leak Hunter for [facility] Diagnoses COPD (chronic obstructive pulmonary disease) J44.9 Chronic respiratory failure with hypoxia J96.11 Acute and chronic respiratory failure with hypoxia J96.21 DNR (do not resuscitate) discussion Z71.89
[2021-10-30] MEDS: rivaroxaban 10 mg Tablet 15 MG PO (17:21)
--- NOTE | 2021-10-30 17:35 | PM.PN ---
Subjective Subjective: Interval history: Patient was seen this afternoon, daughters at bedside, daughter has come from [facility], [facility], patient has met with Dr. 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, does not want to have aggressive interventions, currently on 9 L, doing well, sitting up into a chair, Vitals/I&O/Wt Last Vital Signs Temp 97.6 F 10/30/21 09:00 Pulse 85 10/30/21 15:54 Resp 25 H 10/30/21 15:44 BP 123/60 10/30/21 14:00 Pulse Ox 92 10/30/21 15:44 10/30/21 10/30/21 10/30/21 06:59 14:59 22:59 Intake Total 200 / 770 480 / 480 50 / 530 Output Total 600 / 800 300 / 300 Balance -400 / -30 180 / 180 50 / 230 Weight last 48 hrs Weight 80.467 kg Weight 74.48 kg Physical Exam Const: COMMON NORMALS: no acute distress and patient oriented x3 Resp: COMMON NORMALS: normal respiratory effort, No retractions and No use of accessory muscles AUSCULTATION: diminished lung sounds diffuse Cardio: COMMON NORMALS: regular rate, S1 normal heart sound present and S2 normal heart sound present RATE: regular rate RHYTHM: abnormal rhythm HEART SOUNDS: S1 normal heart sound present and S2 normal heart sound present GI: COMMON NORMALS: Normal to inspection, nondistended, normoactive bowel sounds present, Soft to palpation and non-tender PALPATION: Yes Soft to palpation Extremity: COMMON NORMALS: no pedal edema Neuro: COMMON NORMALS: patient oriented x3 Psych: COMMON NORMALS: mental status grossly normal Data : 10/30/21 03:02 10/30/21 03:02 Micro: Microbiology 10/26/21 08:34 Blood Culture - Preliminary Blood Coagulase negativ staphylococc A&P Assessment and plan (1) COPD (chronic obstructive pulmonary disease): Gold class D COPD and chronic respiratory failure with hypoxia. Recommend continued use of current inhalers and daily oral prednisone once tapered. Status: Acute (2) Chronic respiratory failure with hypoxia: Status: Acute (3) Acute and chronic respiratory failure with hypoxia: Status: Acute (4) DNR (do not resuscitate) discussion: If patient were to have a catastrophic event patient does not wish to receive resuscitation efforts. Patient should have a stay DO NOT RESUSCITATE form filled out and kept at his home. Furthermore, in consultation today the patient has made his wishes clear that he would prefer to stay home and not be readmitted to the hospital. I will relay this information to his current attending physician and hopefully to his PCP, Dr. Jordan. Otherwise if the attending physician who discharges him could relay that information to Dr. Jordan -it would be appreciated. Patient wishes to receive hospice benefits upon his discharge to home from the correction facility. Recommend prescribing short acting morphine either tablet or sublingual as well as Ativan tablet or sublingual for breathlessness and panic attack. Patient prefers to start these drugs once he is discharged home from correction facility. He states he would be more comfortable trying these medications at home. Recommend discontinuation of atorvastatin. Studies of shown statins to be there most beneficial with a 5-year life expectancy. Given that he meets hospice criteria I recommend discontinuation. Status: Acute Additional A&P Information Acute and chronic respiratory failure with hypoxia: -Secondary to underlying COPD exacerbation, pneumonia, fluid overload -Continue nebulizer treatments, Solu-Medrol, DuoNeb treatments, antibiotics, diuresis -Continue 9 L nasal cannula, BiPAP as needed - Plan on discharging to correction facility tomorrow, on rehab Pneumonia They have not been able to collect a sputum MRSA PCR negative Continue Zosyn plus Levaquin currently Rapid Covid negative. Covid PCR negative. Influenza pending. COPD with exacerbation: Continue DuoNeb every 4 hours Continue budesonide every 12 hours Continue Solu-Medrol Sinus pause -Had a 1 second sinus pause today, asymptomatic -Continue to monitor trial fibrillation: Patient with history of atrial fibrillation, on chronic anticoagulation. Rate has drifted up. He was given several doses of digoxin yesterday with good response. Other rate medications were not increased secondary to him being somewhat hypotensive. He responded well to the addition of diltiazem. Continue Cardizem 120 mg daily Continue home medications including metoprolol Continue chronic anticoagulation, Xarelto Cardiomyopathy: History of EF of 45 to 50%. Hold Lasix, appears euvolemic. No evidence of acute exacerbation. BELLA, continue to monitor creatinine, holding Lasix Allow natural . Palliative care consult has been entered. 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
[2021-10-31] VITALS (22 sets, daily range): BP systolic 126–142; BP diastolic 67–76; PULSE 67–102; RESP 12–28; TEMP 36–36.4; O2SAT 91–96
[2021-10-31] MEDS: piperacillin-tazobactam 3.375 GM in sodium chloride 0.9% (plus) 50 ML IV ×2 (00:57→08:24)
[2021-10-31] MEDS: ipratropium-albuterol 3 mL Neb INHALATION ×5 (03:11→19:38)
[2021-10-31] MEDS: metoprolol succinate ER (24 HR) 50 mg Tablet PO (05:47)
[2021-10-31] MEDS: guaiFENesin 600 mg Tablet PO ×2 (08:23→17:54)
[2021-10-31] MEDS: pantoprazole DR 40 mg Tablet PO (08:23)
[2021-10-31] MEDS: dilTIAZem ER (24HR) 120 mg Capsule PO (08:23)
[2021-10-31] MEDS: budesonide 0.5 mg/2 mL Neb INHALATION ×2 (08:51→19:38)
[2021-10-31] MEDS: levofloxacin-dextrose 5 % 750 MG/150 ML PREMIX 100 MG IV (11:11)
--- NOTE | 2021-10-31 11:31 | P.DS_ITS ---
Discharge Providers Date of Admission: 10/26/21 11:11 Date of Discharge: October 31, 2021 Attending Provider at Admission: Slick Ibarra MD Attending Provider at Discharge: Satnam Taylor MD Primary Care Provider: Kalin Jordan DO Diagnoses at Discharge Discharge Diagnosis (1) COPD (chronic obstructive pulmonary disease): Status: Acute (2) Chronic respiratory failure with hypoxia: Status: Acute (3) Acute and chronic respiratory failure with hypoxia: Status: Acute (4) DNR (do not resuscitate) discussion: Status: Acute Reason for Visit Reason for Visit: SOB Hospital Course Hospital Course This is a 76-year-old male with a past medical history of gold stage D COPD, on home trilogy machine, chronic prednisone, on 9 L, atrial fibrillation on Xarelto, who presents [facility] due to shortness of breath Patient was admitted to [facility] for COPD exacerbation, acute on chronic respiratory failure with hypoxia, in underlying pneumonia. Was managed with broad-spectrum antibiotic therapy, inhaler therapy, BiPAP therapy, steroid therapy and clinically monitor. Patient clinically improved to his home 9 L, will be discharged to pulmonary services outpatient. For his gold D COPD, Dr. Lockett palliative care was consulted, patient is considering pursuing hospice when he is eventually discharged home for the skilled nursing For his atrial fibrillation, his Cardizem was increased to 120 mg daily and continue home metoprolol 50 mg daily. For his CHF, his dose of Lasix was decreased to 40 mg daily, creatinine on discharge was 1.4 Physical Exam Const: COMMON NORMALS: no acute distress and patient oriented x3 Resp: COMMON NORMALS: normal respiratory effort, No retractions and No use of accessory muscles AUSCULTATION: diminished lung sounds diffuse Cardio: COMMON NORMALS: regular rate, regular rhythm, S1 normal heart sound present and S2 normal heart sound present RATE: regular rate RHYTHM: regular rhythm HEART SOUNDS: S1 normal heart sound present and S2 normal he art sound present GI: COMMON NORMALS: Normal to inspection, nondistended, normoactive bowel sounds present, Soft to palpation and non-tender PALPATION: Yes Soft to palpation Extremity: COMMON NORMALS: no pedal edema Neuro: COMMON NORMALS: patient oriented x3 Psych: COMMON NORMALS: mental status grossly normal Discharge Data Data Completed and Pending: Completed Studies During Hospitalization Category Date Time Status CT angio chest PE protcl [id number] Stat Cat Scan 10/26/21 08:48 Completed XR chest 1V jenifer ble [id number] Routine Exams 10/28/21 09:28 Completed XR chest 1V jenifer ble [id number] Stat Exams 10/26/21 08:26 Completed Pending at discharge Category Date Time Status Blood Culture Sta t Lab 10/26/21 08:34 Results Influ A&B Antibod y IGG/M Routine Lab 10/26/21 04:46 Received Sputum Culture an d Gram Stain Routi ne Lab 10/26/21 11:11 Uncollected Vitals: Last Vital Signs Temp 97.4 F L 10/31/21 04:00 Pulse 77 10/31/21 10:00 Resp 18 10/31/21 10:00 BP 136/73 10/31/21 10:00 Pulse Ox 94 10/31/21 10:00 Discharge Plan Discharge Patient Disposition: Home Condition: Stable Prescriptions: New guaifenesin [Mucinex] 600 mg Tablet Extended Release 12hr 600 mg PO BID PRN (Reason: congestion) 30 Days Qty: 60 RF: 0 diltiazem HCl 120 mg Capsule,Extended Release 24hr 120 mg PO DAILY 30 Days Qty: 30 RF: 0 doxycycline hyclate 100 mg tablet 100 mg PO BID 7 Days Qty: 14 RF: 0 pantoprazole 40 mg Tablet,Delayed Release (Dr/Ec) 40 mg PO DAILY 30 Days Qty: 30 RF: 0 prednisone 10 mg tablet See Rx Instructions .ROUTE .COMPLEX Qty: 53 RF: 0 Continued metoprolol succinate 50 mg tablet extended release 24 hr 50 mg PO QAM RF: 0 atorvastatin 20 mg tablet 20 mg PO DAILY RF: 0 albuterol sulfate 2.5 mg /3 mL (0.083 %) solution for nebulization 2.5 mg INHALATION Q4H PRN (Reason: Shortness Of Breath) RF: 0 nitroglycerin 0.4 mg tablet, sublingual 0.4 mg sublingual Q5M PRN (Reason: chest pain) Qty: 30 RF: 0 Vitamin D3 25 mcg (1,000 unit) Capsule 25 mcg PO DAILY RF: 0 budesonide 0.5 mg/2 mL suspension for nebulization 0.5 mg inhalation BID RF: 0 Ventolin HFA 90 mcg/actuation HFA aerosol inhaler 2 puff INHALATION Q6H PRN (Reason: Shortness Of Breath) RF: 0 Flonase Allergy Relief 50 mcg/actuation spray,suspension 2 spray intranasal DAILY PRN (Reason: Allergy Symptoms) RF: 0 Perforomist 20 mcg/2 mL solution for nebulization 20 mcg inhalation Q12H RF: 0 Xarelto 20 mg tablet 20 mg PO QPM RF: 0 Yupelri 175 mcg/3 mL solution for nebulization 175 mcg inhalation DAILY RF: 0 Changed Lasix 40 mg tablet 40 mg PO QAM Qty: 0 RF: 0 prednisone 5 mg tablet 5 mg PO QPM Qty: 0 RF: 0 Discontinued olmesartan 40 mg tablet 40 mg PO DAILY RF: 0 nifedipine 30 mg tablet extended release 24hr 30 mg PO QPM RF: 0 Discharge Orders: Discharge Order (Routine); Ordered 10/31/21 Ordered By: Satnam Taylor Referrals: Josie Jacobson MD [Physician] - 1 week Discharge Diet: Cardiac Discharge Activity: Resume usual activity Patient Instructions: Opioid Safety Activity Restrictions/Additional Instructions: -Please take inhalers, steroids, antibiotics as prescribed -Follow with pulmonary in 1 week Discharge Attestations Time Spent in Discharge Care*: less than 30 min Quality Metrics Clinical Quality Measures During this hospital stay, did patient experience: None Coding Level of Care Code Acute [facility]g FW DC note Diagnoses COPD (chronic obstructive pulmonary disease) J44.9 Chronic respiratory failure with hypoxia J96.11 Acute and chronic respiratory failure with hypoxia J96.21 DNR (do not resuscitate) discussion Z71.03
--- NOTE | 2021-10-31 11:38 | PC.SOCIAL ---
IMM Updated Updated pt on IMM. No questions voiced. Provided pt a copy. Initialed, dated, & timed copy in chart.
--- NOTE | 2021-10-31 14:27 | P.PN_ITS ---
Subjective Subjective: Interval history: Patient was seen this morning, he is on 9 L, had a uneventful night, no chest pain, no shortness of breath Vitals/I&O/Wt Last Vital Signs Temp 97.4 F L 10/31/21 04:00 Pulse 74 10/31/21 14:00 Resp 20 H 10/31/21 14:00 BP 136/73 10/31/21 14:00 Pulse Ox 94 10/31/21 14:00 10/30/21 10/31/21 10/31/21 22:59 06:59 14:59 Intake Total 300 / 780 50 / 830 700 / 700 Output Total 225 / 525 450 / 975 900 / 900 Balance 75 / 255 -400 / -145 -200 / -200 Weight last 48 hrs Weight 79.968 kg Weight 80.467 kg Physical Exam Const: COMMON NORMALS: no acute distress and patient oriented x3 Resp: COMMON NORMALS: normal respiratory effort, No retractions and No use of accessory muscles AUSCULTATION: diminished lung sounds diffuse Cardio: COMMON NORMALS: regular rate, regular rhythm, S1 normal heart sound present and S2 normal heart sound present RATE: regular rate RHYTHM: regular rhythm HEART SOUNDS: S1 normal heart sound present and S2 normal heart sound present GI: COMMON NORMALS: Normal to inspection, nondistended, normoactive bowel sounds present, Soft to palpation and non-tender PALPATION: Yes Soft to palpation Extremity: COMMON NORMALS: no pedal edema Neuro: COMMON NORMALS: patient oriented x3 Psych: COMMON NORMALS: mental status grossly normal Data : 10/30/21 03:02 10/30/21 03:02 Micro: Microbiology 10/26/21 08:34 Blood Culture - Preliminary Blood Coagulase negativ staphylococc A&P Assessment and plan (1) COPD (chronic obstructive pulmonary disease): Gold class D COPD and chronic respiratory failure with hypoxia. Recommend continued use of current inhalers and daily oral prednisone once tapered. Status: Acute (2) Chronic respiratory failure with hypoxia: Status: Acute (3) Acute and chronic respiratory failure with hypoxia: Status: Acute (4) DNR (do not resuscitate) discussion: If patient were to have a catastrophic event patient does not wish to receive resuscitation efforts. Patient should have a stay DO NOT RESUSCITATE form filled out and kept at his home. Furthermore, in consultation today the patient has made his wishes clear that he would prefer to stay home and not be readmitted to the hospital. I will relay this information to his current attending physician and hopefully to his PCP, Dr. Jordan. Otherwise if the attending physician who discharges him could relay that information to Dr. Jordan -it would be appreciated. Patient wishes to receive hospice benefits upon his discharge to home from the [facility] facility. Recommend prescribing short acting morphine either tablet or sublingual as well as Ativan tablet or sublingual for breathlessness and panic attack. Patient prefers to start these drugs once he is discharged home from [facility] facility. He states he would be more comfortable trying these medications at home. Recommend discontinuation of atorvastatin. Studies of shown statins to be there most beneficial with a 5-year life expectancy. Given that he meets hospice criteria I recommend discontinuation. Status: Acute Additional A&P Information Acute and chronic respiratory failure with hypoxia: -Secondary to underlying COPD exacerbation, pneumonia, fluid overload -Continue nebulizer treatments, Solu-Medrol, DuoNeb treatments, antibiotics, diuresis -Continue 9 L nasal cannula, BiPAP as needed - Plan on discharging to [facility] facility tomorrow, on rehab Pneumonia They have not been able to collect a sputum MRSA PCR negative Continue Levaquin, stop Zosyn Rapid Covid negative. Covid PCR negative. Influenza pending. COPD with exacerbation: Continue DuoNeb every 4 hours Continue budesonide every 12 hours Continue Solu-Medrol Sinus pause -Had a 1 second sinus pause today, asymptomatic -Continue to monitor trial fibrillation: Patient with history of atrial fibrillation, on chronic anticoagulation. Rate has drifted up. He was given several doses of digoxin yesterday with good response. Other rate medications were not increased secondary to him being somewhat hypotensive. He responded well to the addition of diltiazem. Continue Cardizem 120 mg daily Continue home medications including metoprolol Continue chronic anticoagulation, Xarelto Cardiomyopathy: History of EF of 45 to 50%. Hold Lasix, appears euvolemic. No evidence of acute exacerbation. BELLA, continue to monitor creatinine, holding Lasix Allow natural . Palliative care consult has been entered. Attestations Medical Necessity Statement*: Patient requires hospitalization for acute on chronic respiratory failure Coding Level of Care Code Acute [employer] Action As[employer]er [facility] Diagnoses COPD (chronic obstructive pulmonary disease) J44.9 Chronic respiratory failure with hypoxia J96.11 Acute and chronic respiratory failure with hypoxia J96.21 DNR (do not resuscitate) discussion Z71.89
--- NOTE | 2021-10-31 16:25 | PC.NURSE ---
Pt to first floor Report called to Yolanda IRIZARRY. Pt was taken by w/c to room 102.
[2021-10-31] MEDS: rivaroxaban 10 mg Tablet 15 MG PO (17:54)
[2021-11-01] VITALS (13 sets, daily range): BP systolic 131–142; BP diastolic 75–79; PULSE 74–92; RESP 17–20; TEMP 36.1–36.7; O2SAT 92–96
[2021-11-01] MEDS: ipratropium-albuterol 3 mL Neb INHALATION ×3 (00:35→12:20)
[2021-11-01 04:59] LABS: Basophils # 0.1 10^3/uL (0.0-0.1); Basophils % 0.3 %; Hematocrit 37.6 % (42.0-52.0); Lymphocytes # 0.3 10^3/uL (0.8-4.8); Lymphocytes % 1.9 %; Mean Corpuscular HGB Conc 31.9 g/dL (30.0-36.0); Mean Corpuscular Hemoglobin 29.9 pg (28.0-34.0); Mean Corpuscular Volume 93.8 fl (80-94); Mean Platelet Volume 11.5 fL (7.4-10.4); Monocytes # 0.6 10^3/uL (0.2-0.9); Neutrophils # 13.29 10^3/uL (1.8-7.7); Neutrophils % 91.1 %; Nucleated Red Blood Cells % 0 %; Platelet Count 207 10^3/cmm (130-400); Red Blood Count 4.01 10^6/uL (4.1-5.3); Red Cell Distribution Width 13.6 % (12.1-15.1); White Blood Count 14.6 10^3/uL (4.0-10.0)
[2021-11-01 05:20] LABS: Anion Gap 15.5 (5-19); Blood Urea Nitrogen 35 mg/dL (8-23); Calcium 9.2 mg/dL (8.5-10.5); Carbon Dioxide 30 mmol/L (22-29); Chloride 101 mmol/L (98-107); Glucose 134 mg/dL (65-115); Osmolality Calculated 304 mOsm/kg (285-295); Potassium 4.5 mmol/L (3.5-5.1); Sodium 142 mmol/L (136-145)
[2021-11-01 05:21] LABS: Phosphorus 2.6 mg/dL (2.5-4.5)
[2021-11-01] MEDS: metoprolol succinate ER (24 HR) 50 mg Tablet PO (06:31)
--- NOTE | 2021-11-01 07:43 | PM.PN ---
Subjective Subjective: Interval history: This should serve as an addendum to his discharge summary. Patient reports he is doing well. He was hoping he would get to the nursing facility for rehabilitation tomorrow, but for some reason that did not happen. He denies any acute complaints today. Medications: Reviewed: Yes Vitals/I&O/Wt Last Vital Signs Temp 96.8 F L 10/31/21 22:00 Pulse 88 11/01/21 05:15 Resp 18 11/01/21 05:13 BP 132/79 11/01/21 05:13 Pulse Ox 93 11/01/21 05:13 10/31/21 11/01/21 11/01/21 22:59 06:59 14:59 Intake Total 980 / 1680 150 / 1830 Output Total 1100 / 2000 300 / 2300 Balance -120 / -320 -150 / -470 Weight last 48 hrs Weight 79.968 kg Physical Exam Narrative: EXAM NARRATIVE: General exam is a white male, mild respiratory distress today. Does appear improved from yesterday. Neck is supple no lymphadenopathy or thyromegaly Cardiovascular irregular, irregular with a rate of approximately 100 Lungs diminished breath sounds bilaterally. No wheezes Abdomen is soft nontender positive bowel sounds. No obvious organomegaly Extremities trace edema. No cyanosis or clubbing. Cap refill brisk. Data : 11/01/21 03:34 11/01/21 03:34 Micro: Microbiology 10/26/21 08:34 Blood Culture - Final Blood NO GROWTH AFTER 5 DAYS 10/26/21 08:34 Blood Culture - Preliminary Blood Coagulase negativ staphylococc A&P Assessment and plan (1) COPD (chronic obstructive pulmonary disease): Exacerbation improving Prednisone taper on discharge Currently on 8 L Pulmonary toilet, budesonide Is to wear BiPAP at night, as needed during the day Status: Acute (2) Chronic respiratory failure with hypoxia: See above Status: Acute (3) Acute and chronic respiratory failure with hypoxia: Status: Acute (4) DNR (do not resuscitate) discussion: If patient were to have a catastrophic event patient does not wish to receive resuscitation efforts. Patient should have a stay DO NOT RESUSCITATE form filled out and kept at his home. Furthermore, in consultation today the patient has made his wishes clear that he would prefer to stay home and not be readmitted to the hospital. I will relay this information to his current attending physician and hopefully to his PCP, Dr. Jordan. Otherwise if the attending physician who discharges him could relay that information to Dr. Jordan -it would be appreciated. Patient wishes to receive hospice benefits upon his discharge to home from the intermediate facility. Recommend prescribing short acting morphine either tablet or sublingual as well as Ativan tablet or sublingual for breathlessness and panic attack. Patient prefers to start these drugs once he is discharged home from intermediate facility. He states he would be more comfortable trying these medications at home. Recommend discontinuation of atorvastatin. Studies of shown statins to be there most beneficial with a 5-year life expectancy. Given that he meets hospice criteria I recommend discontinuation. Above is the recommendations by palliative care Status: Acute Additional A&P Information Pneumonia, improved. MRSA PCR was negative. Continue Levaquin. Covid negative. Atrial fibrillation. Stable currently on Cardizem and metoprolol. Anticoagulated with Xarelto. Cardiomyopathy: History of EF of 45 to 50%. Reinitiate Lasix. BELLA, resolved Allow natural . Palliative care consult has been entered. 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
[2021-11-01] MEDS: budesonide 0.5 mg/2 mL Neb INHALATION (08:37)
[2021-11-01] MEDS: FUROsemide 40 mg Tablet PO (08:44)
[2021-11-01] MEDS: dilTIAZem ER (24HR) 120 mg Capsule PO (08:44)
[2021-11-01] MEDS: guaiFENesin 600 mg Tablet PO (08:44)
[2021-11-01] MEDS: pantoprazole DR 40 mg Tablet PO (08:44)
--- NOTE | 2021-11-01 09:04 | PC.CHAP ---
Pastoral Care Encounter/Spiritual Assessment Type of Contact [] Declined client professional visit [] Patient/Family/Request visit [] Outpatient visit [] Follow-up visit [] Physician referral [] Code/Alert [x] Routine visit [] Staff referral [] Actively dying [] Patient sleeping [] Family support [] [] Out of room [] Palliative care [] [] Receiving care in room [] Pre-surgical visit [] Trauma [] Long length of stay [] ICU visit [] Other: Relational/Emotional Strength [] Patient feels connected with others/family/visitors/staff [] Distress [] Loneliness/isolation [] Abandonment Spirituality of Patient [] Person of Malathi [] Attends Yarsanism of their Malathi [] Believes in Prayer [] Reads Bible or Mandaeism materials [] There are Spiritual issues to be addressed Compo Conveyor Operator Interventions [x] Prayer [x] Active listening [x] Non-anxious presence [x] Spiritual/emotional support [] Crisis/trauma care [] Spiritual counseling [] Bereavement support [] Provided bereavement packet [] Provided Bible/devotional materials [] Provided toy/stuffed animal, coloring book to patient or family member [] Provided Communion [] Anointing/Quitman [] Salvation [x] Completed spiritual assessment [] Other: Impact on Illness or Injury [] Angry [] Fearful [] Anxious [] Often cries [] Exhaustion [] Unable to work [] Unable to attend advent [] Unable to walk/stand [] Unable to read [] Unable to drive [] Unable to eat/drink [] Unable to sleep [] Unable to be with family [] Patient intubated [] Other: Summary patient sitting up in chair.. oxg.. feeling somewhat stronger Time spent with patient 5 min
[2021-11-01 14:14] LABS: Adenovirus Not Detected (NOT DETECT); Chlamydia Pneumoniae Not Detected (NOT DETECT); Coronavirus 229E,HKU1,NL63,OC4 Not Detected (NOT DETECT); Human Metapneumovirus Detected (NOT DETECT); Human Rhinovirus/Enterovirus Not Detected (NOT DETECT); Influenza A Not Detected (NOT DETECT); Influenza A H1 Not Detected (NOT DETECT); Influenza A H1-2009 Not Detected (NOT DETECT); Influenza A H3 Not Detected (NOT DETECT); Influenza B Not Detected (NOT DETECT); Mycoplasma Pneumoniae Not Detected (NOT DETECT); Parainfluenza Virus Type 1 Not Detected (NOT DETECT); Parainfluenza Virus Type 2 Not Detected (NOT DETECT); Parainfluenza Virus Type 3 Not Detected (NOT DETECT); Parainfluenza Virus Type 4 Not Detected (NOT DETECT); Respiratory Syncytial Virus A Not Detected (NOT DETECT); Respiratory Syncytial Virus B Not Detected (NOT DETECT); SARS-COV-2 Not Detected (NOT DETECT)
[2021-11-01 14:32] LABS: Human Metapneumovirus Detected (NOT DETECT); Human Rhinovirus/Enterovirus Not Detected (NOT DETECT); Results from Genmark
== END 2021-11-01 15:49 | disposition skilled nursing facility (03) | DRG 193 ==
LOC: ER 08:32 → ICU 11:26 → CSU 10-31 15:53
PROVIDERS: Family Medicine; Admitting Provider Internal Medicine; Emergency Provider Family Medicine; PCP Internal Medicine; Visit Provider Internal Medicine
DX: J18.9 Pneumonia, unspecified organism (principal); J96.21 Acute and chronic respiratory failure with hypoxia; J44.1 Chronic obstructive pulmonary disease with (acute) exacerbation; J44.0 Chronic obstructive pulmonary disease with (acute) lower respiratory infection; N13.8 Other obstructive and reflux uropathy; I48.20 Chronic atrial fibrillation, unspecified; I42.9 Cardiomyopathy, unspecified; N17.9 Acute kidney failure, unspecified; N40.1 Benign prostatic hyperplasia with lower urinary tract symptoms; I25.10 Atherosclerotic heart disease of native coronary artery without angina pectoris; Z95.1 Presence of aortocoronary bypass graft; I12.9 Hypertensive chronic kidney disease with stage 1 through stage 4 chronic kidney disease, or unspecified chronic kidney disease; N18.9 Chronic kidney disease, unspecified; E78.5 Hyperlipidemia, unspecified; Z87.891 Personal history of nicotine dependence; E83.42 Hypomagnesemia; Z66 Do not resuscitate; E87.6 Hypokalemia; Z79.51 Long term (current) use of inhaled steroids; Z79.01 Long term (current) use of anticoagulants
CPT/HCPCS: 36415; 36600; 71045; 71275; 80048; 80051; 80053; 81001; 82330; 82550; 82805; 83605; 83690; 83735; 83880; 84100; 84145; 85025; 86710; 87040; 87205; 87426; 87635; 87641; 87801; 93005; 94640; 94660; 96365; 96367; 96375; 97110; 97116; 97161; 97530; 99291; J1100; J1160; J1956; J2543; J2930; J3475; J7626; Q9967